=== PATIENT | female | born 1955 | race Caucasian/White ===

== ENCOUNTER 2016-06-29 13:26 | Emergency (ER) | payer OTHER ==
[2016-06-29 16:25] VITALS: BP 106/83
--- NOTE | 2016-06-29 20:38 | UC ---
chary Ruiz Timothy, scribed for Jesenia Fonseca MD on 06/29/16 at 1632 . General HPI - HPI Summary HPI Summary: Randi Xie is a 61 yo female presenting to [facility] with fatigue, PEREZ (frontal) and lightheadedness for 2 months[address] She has seen Dr. Mckeon for this. She also c/ o chronic back pain. She also feels chills and is unable to get warm. She states possible causes could be low potassium and anemia. She has been prescribed potassium and iron for everyday use. Her last appointment with Dr. Mckeon was a few weeks ago, but she did not have labs drawn. She states [place] [facility] [place] Additionally, she states she was scratched by her cat a few days ago on her hands and she has been scratching those areas and sores have appeared. She denies any other Sx. She is a former smoker, with a Hx of RA, HTN, migraines, numbness, IBS, DM (resolved with weight loss). - History of Current Complaint Stated Complaint: TIRED Time Seen by Provider: 06/29/16 16:09 Hx Obtained From: Patient Onset/Duration: Gradual Onset, Lasting Weeks, Still Present Timing: Constant Onset Severity: Moderate Current Severity: Moderate Pain Intensity: 0 Associated Signs & Symptoms: Positive: Headache, Other - fatigue, lightheadedness, chills, sores on hands - Allergy/Home Medications Allergies/Adverse Reactions: Allergies Allergy/AdvReac Type Severity Reaction Status Date / Time No Known Allergies Allergy Verified 06/29/16 16:16 Home Medications: Home Medications Med For Ra* 06/29/16 [History] PMH/Surg Hx/FS Hx/Imm Hx Previously Healthy: No - RA, psychiatric issues Endocrine History Of: Denies: Thyroid Disease Comment Only: Diabetes - sugars returned to normal following wt loss per pt. Cardiovascular History Of: Reports: Hypertension Denies: Cardiac Disorders, Pacemaker/ICD Respiratory History Of: Denies: COPD, Asthma GI/ History Of: Denies: Gastroesophageal Reflux, Renal Disease Neurological History Of: Reports: Migraine Denies: CVA, Dementia, Seizures Cancer History Of: Denies: Breast Cancer Other History Of: Negative For: Anticoagulant Therapy - Surgical History Surgical History: Yes Surgery Procedure, Year, and Place: tubal ligation,bilat carpal tunnel, hemorrhoid surgery-history of RA ARTHRITIS IN FINGERS - Family History Known Family History: Positive: Other - anxiety, mood disorders, alcohol abuse, rheumatoid arthritis - Social History Occupation: Unemployed Lives: With Family Alcohol Use: None Substance Use Type: None Smoking Status (MU): Former Smoker - Immunization History Most Recent Influenza Vaccination: 2006 Most Recent Tetanus Shot: >10 yrs Most Recent Pneumonia Vaccination: no Review of Systems Constitutional: Chills, Fatigue Skin: Rash Eyes: Negative ENT: Negative Respiratory: Negative Cardiovascular: Negative Gastrointestinal: Negative Genitourinary: Negative Motor: Negative Neurovascular: Negative Musculoskeletal: Arthralgia, Myalgia Neurological: Headache, Other - lightheadedness Psychological: Negative All Other Systems Reviewed And Are Negative: Yes Physical Exam Triage Information Reviewed: Yes Appearance: No Pain Distress, Well-Nourished, Ill-Appearing Vital Signs: Initial Vital Signs Temp 98.6 F 06/29/16 16:11 Pulse 69 06/29/16 16:11 Resp 18 06/29/16 16:11 BP 106/83 06/29/16 16:11 Pulse Ox 98 06/29/16 16:11 Vital Signs Reviewed: Yes Eyes: Positive: Conjunctiva Clear ENT: Positive: Hearing grossly normal, Pharynx normal. Negative: Muffled/ hoarse voice Neck: Positive: Supple, Nontender, No Lymphadenopathy Respiratory: Positive: Lungs clear, Normal breath sounds, No respiratory distress Cardiovascular: Positive: RRR, No Murmur, Pulses Normal, Brisk Capillary Refill Abdomen Description: Positive: Nontender, Soft. Negative: Distended, Guarding Musculoskeletal: Positive: Strength Intact, ROM Intact Neurological: Positive: Alert, Muscle Tone Normal Psychological Exam: Normal Skin: Positive: rashes - multiple excoriated maculopapular erythematous regions , on dorsal aspect of hands and forearms, right side worse than left. No streaks , drainage, or signs of infection. Minimal swelling. Course/Dx - Course Course Of Treatment: Randi Xie is a 61 yo female presenting to [facility] with fatigue, PEREZ, and chills for the past few months. Consult of [facility] shows most recent pain medication was tramadol 03/03/2016. Additionally, her lab work on showed Hgb of 11.9, hematocrit 36, and potassium 3.4. She will have lab work drawn, with instructions to maintain a iron and potassium rich diet to avoid hypokalemia and anemia. She has further instructions to follow up with her PCP. - Differential Dx - Multi-Symptom Provider Diagnoses: Fatigue. hx anemia. hx hypokalemia. hx RA Discharge - Discharge Plan Condition: Stable Disposition: HOME Patient Education Materials: Iron Rich Diet (ED), Hypokalemia (ED), Rheumatoid Arthritis (ED) Referrals: Emily Mckeon MD [Primary Care Provider] - 2 Days Additional Instructions: Dr. Fonseca has drawn your blood for a CBC and CMP which will check your level of anemia and potassium. Continue your iron supplement and your potassium supplement. Dr. Mckeon will get a copy of this blood work and you should call their office tomorrow to arrange to be seen by them this week. Go to the emergency room if you have any new or worsening symptoms. The documentation as recorded by the chary szymanski Timothy accurately reflects the service I personally performed and the decisions made by me, Jesenia Fonseca MD.
[2016-06-30 10:52] LABS: Hematocrit 37 % (35-47); Hemoglobin 12.1 g/dl (12.0-16.0); Mean Corpuscular HGB Conc 33 g/dl (31-36); Mean Corpuscular Hemoglobin 29 pg (27-31); Mean Corpuscular Volume 88 fL (80-97); Mean Platelet Volume 9 um3 (7.4-10.4); Red Blood Count 4.23 10^6/ul (4.0-5.4); Red Cell Distribution Width 16 % (10.5-15); White Blood Count 6.7 10^3/ul (3.5-10.8)
[2016-06-30 11:02] LABS: Albumin 3.8 g/dL (3.2-5.2); Calcium 8.8 mg/dL (8.6-10.3); EGFR African American 72.3 (>60); EGFR Non-African American 56.2 (>60); Globulin 3.3 g/dL (2-4); Potassium 3.8 mmol/L (3.5-5.0); Total Bilirubin 0.5 mg/dL (0.2-1.0); Total Protein 7.1 g/dL (6.4-8.9)
== END 2016-06-29 17:05 | disposition home or self-care (01) ==
LOC: UCEAST 13:26
DX: R53.83 Other fatigue (principal); R51 Headache; S60.512A Abrasion of left hand, initial encounter; S60.511A Abrasion of right hand, initial encounter; W55.03XA Scratched by cat, initial encounter; Y93.9 Activity, unspecified; Y92.9 Unspecified place or not applicable; Z87.891 Personal history of nicotine dependence
CPT/HCPCS: 36415; 80053; 85025; 99212; G0463

== ENCOUNTER 2017-05-29 21:36 | Emergency (ER) | payer OTHER ==
[2017-05-30] MEDS ORDERED: HYDROcodone/ACETAMIN 5-325 MG* 1 TAB PO ONE (02:43)
--- NOTE | 2017-05-30 02:49 | ED ---
Lower Extremity - HPI Summary HPI Summary: 62 female presents to ED with complaints of left knee pain that began just CLEANER WINDOW. Patient states she was sitting when she attempted to stand up while holding her <20pound grandson and she felt a pop. States the pain makes it difficult for her to bear weight or walk. Admits to swelling, denies bruising, numbness and tingling. No other complaints. States she has rheumatoid arthritis and takes oxaprozin. Has not taken any other medications for the pain. PMHx also included HTN. - History of Current Complaint Chief Complaint: EDExtremityLower Stated Complaint: LT KNEE PAIN Time Seen by Provider: 05/30/17 00:44 Hx Obtained From: Patient Mechanism Of Injury: Twisted, Unknown Onset of Pain: Immediate Onset/Duration: Hours Severity Initially: Mild Severity Currently: Moderate Pain Intensity: 8 Pain Scale Used: 0-10 Numeric Timing: Constant Location: Is Discrete @ - anterior right knee Character Of Pain: Sharp, Aching Associated Signs And Symptoms: Positive: Swelling, Knee Pain Aggravating Factor(s): Standing, Ambulation, Movement, Weight Bearing Alleviating Factor(s): Rest Able to Bear Weight: Yes - however painful - Allergies/Home Medications Allergies/Adverse Reactions: Allergies Allergy/AdvReac Type Severity Reaction Status Date / Time No Known Allergies Allergy Verified 02/24/17 15:09 PMH/Surg Hx/FS Hx/Imm Hx Endocrine/Hematology History: Denies: Hx Anticoagulant Therapy, Hx Thyroid Disease Comment Only: Hx Diabetes - sugars returned to normal following wt loss per pt. Cardiovascular History: Reports: Hx Hypertension, Other Cardiovascular Problems/ Disorders - Hx HTN Denies: Hx Pacemaker/ICD Respiratory History: Denies: Hx Asthma, Hx Chronic Obstructive Pulmonary Disease (COPD) GI History: Reports: Hx Irritable Bowel History: Denies: Hx Renal Disease Musculoskeletal History: Reports: Hx Arthritis, Hx Rheumatoid Arthritis Denies: Hx Osteoporosis, Hx Scoliosis Sensory History: Reports: Hx Contacts or Glasses Denies: Hx Hearing Aid Opthamlomology History: Reports: Hx Contacts or Glasses Neurological History: Reports: Hx Migraine Denies: Hx Dementia, Hx Headaches, Hx Seizures Psychiatric History: Reports: Hx Panic Disorder - pt will talk with her ref.doctor Denies: Hx Eating Disorder, Hx of Violent Episodes Against Others, Hx Substance Abuse - Cancer History Hx Chemotherapy: No Hx Radiation Therapy: No - Surgical History Surgery Procedure, Year, and Place: tubal ligation,bilat carpal tunnel, hemorrhoid surgery-history of RA ARTHRITIS IN FINGERS Hx Anesthesia Reactions: No - Immunization History Date of Tetanus Vaccine: Unk Date of Influenza Vaccine: Fall 2013 Immunizations Up to Date: Yes Infectious Disease History: No Infectious Disease History: Denies: Hx Hepatitis, Hx Human Immunodeficiency Virus (HIV), Traveled Outside the [place] in Last 30 Days - Family History Known Family History: Positive: Other - anxiety, mood disorders, alcohol abuse, rheumatoid arthritis - Social History Alcohol Use: None Substance Use Type: Reports: None Smoking Status (MU): Former Smoker Review of Systems Constitutional: Negative Cardiovascular: Negative Respiratory: Negative Positive: Arthralgia, Myalgia, Decreased ROM, Edema - left knee Skin: Negative Neurological: Negative All Other Systems Reviewed And Are Negative: Yes Physical Exam Triage Information Reviewed: Yes Vital Signs On Initial Exam: Initial Vitals Temp Pulse Resp BP Pulse Ox 98.1 F 67 18 110/63 97 05/29/17 21:43 05/29/17 21:43 05/29/17 21:43 05/29/17 21:43 05/29/17 21:43 Vital Signs Reviewed: Yes Appearance: Positive: Well-Appearing, Well-Nourished, Pain Distress - moderate Skin: Positive: Warm, Skin Color Reflects Adequate Perfusion, Dry. Negative: Cold, Cyanosis @, Pale, Erythema @ Head/Face: Positive: Normal Head/Face Inspection Eyes: Positive: Conjunctiva Clear ENT: Positive: Hearing grossly normal Neck: Positive: Supple Respiratory/Lung Sounds: Positive: Clear to Auscultation, Breath Sounds Present. Negative: Rales, Rhonchi, Wheezes Cardiovascular: Positive: Normal, RRR, Pulses are Symmetrical in both Upper and Lower Extremities - 2+ pedal bl. Negative: Murmur, Rub Musculoskeletal: Positive: Limited @ - left knee due to pain, Pain @ - left knee , Other - no ecchymosis, edema, crepitus or step off noted. no obvious signs of deformity noted. Negative: Interruption @, Abnormal @ Neurological: Positive: Normal, Sensory/Motor Intact, Alert, Oriented to Person Place, Time, CN Intact II-III, Reflexes Intact, NV Bundle Intact Distally, Normal Gait - [place] Coma Scale Coma Scale Total: 15 Diagnostics - Vital Signs Vital Signs Temp Pulse Resp BP Pulse Ox 05/29/17 21:43 98.1 F 67 18 110/63 97 - Laboratory Lab Statement: Any lab studies that have been ordered have been reviewed, and results considered in the medical decision making process. - Radiology left knee Xray Interpretation: No Acute Changes - normal knee xray Radiology Interpretation Completed By: ED Physician - Dr Geller and myself Lower Extremity Course/Dx - Course Course Of Treatment: given pain management while in ED. Xray obtained and negative. Appears to have suffered a knee sprain with possible ligamentous/ meniscal injury due to SUDEEP and complaints. No abnormal PE findings. Will continue pain medication at home. normal vitals and no other concerns at this time. follow up with PCP/ ortho for further imaging eval if symptoms persist. RICE and knee immboizer. Patient does use cane. - Diagnoses Differential Diagnosis/HQI/PQRI: Positive: Contusion, Dislocation, Fracture ( Closed), Sprain, Strain Provider Diagnoses: Pain of left knee after injury, Sprain of left knee Discharge - Discharge Plan Condition: Stable Disposition: HOME Prescriptions: HYDROcodone/ACETAMIN 5-325 MG* [[employer] 5-325 TAB*] 1 tab PO Q6H PRN #10 tab MDD 2 PRN Reason: Pain Patient Education Materials: Knee Sprain (ED), Knee Immobilizer (ED) Referrals: Emily Mckeon MD [Primary Care Provider] - Additional Instructions: Take prescribed pain medication to help with pain over the next couple of days. Continue taking daily medications including the anti-inflammatory. Rest, ice and elevate. Avoid over use and bearing weight when able. Wear knee immobilizer for support. Follow up with PCP and ortho if symptoms persist for further evaluation and imaging. Any new or worsening symptoms please seek medical attention, as discussed.
[2017-05-30 03:14] VITALS: BP 138/67
--- NOTE | 2017-05-30 10:05 | RAD ---
INDICATION: Left knee pain COMPARISON: Knee radiographs October 05, 2016 TECHNIQUE: 4 view radiograph of the left knee. FINDINGS: The visualized bones are well-corticated and properly aligned. Degenerative changes include narrowing of the medial greater than lateral compartment. There is osteophyte formation adjacent to the lateral compartment. There is narrowing of the patellofemoral joint with superior pole patellar osteophyte formation. There is no radiographic evidence of joint effusion. There is no acute fracture, dislocation or other focal bony abnormality. IMPRESSION: Mild degenerative changes of the left knee similar in appearance to the previous x-ray. If the patient's symptoms persist, follow-up imaging is recommended.
== END 2017-05-30 03:29 | disposition home or self-care (01) ==
LOC: ED 21:36
DX: S83.92XA Sprain of unspecified site of left knee, initial encounter (principal); M25.562 Pain in left knee; M25.462 Effusion, left knee; X58.XXXA Exposure to other specified factors, initial encounter; Y93.9 Activity, unspecified; Y92.9 Unspecified place or not applicable; Z87.891 Personal history of nicotine dependence
CPT/HCPCS: 99282

== ENCOUNTER 2017-11-20 19:21 | Emergency (ER) | payer OTHER ==
--- NOTE | 2017-11-20 20:06 | RAD ---
HISTORY: Headache and lower extremity numbness COMPARISONS: February 20, 2015 TECHNIQUE: Multiple contiguous axial CT scans were obtained of the head without intravenous contrast. FINDINGS: HEMORRHAGE/INFARCT: There is no hemorrhage or acute infarct. MASSES/SHIFT: There is no mass or shift. EXTRA-AXIAL SPACES: There are no extra-axial fluid collections. SULCI AND VENTRICLES: The sulci and ventricles are normal in size and position for the patient's stated age. CEREBRUM: There are no focal parenchymal abnormalities. BRAINSTEM: There are no focal parenchymal abnormalities. CEREBELLUM: There are no focal parenchymal abnormalities. VESSELS: The vessels are grossly normal. PARANASAL SINUSES: The paranasal sinuses are clear. ORBITS: The orbits are unremarkable. BONES AND SOFT TISSUE: No bone or soft tissue abnormalities are noted. OTHER: None IMPRESSION: NO ACUTE INTRACRANIAL PATHOLOGY.
--- NOTE | 2017-11-20 20:15 | RAD ---
HISTORY: Weakness COMPARISONS: January 28, 2015 VIEWS: 3: Frontal and lateral views of the chest. FINDINGS: CARDIOMEDIASTINAL SILHOUETTE: The cardiomediastinal silhouette is normal. AMANDA: The amanda are normal. PLEURA: The costophrenic angles are sharp. No pleural abnormalities are noted. LUNG PARENCHYMA: The lungs are clear. ABDOMEN: The upper abdomen is clear. There is no subphrenic gas. BONES AND SOFT TISSUES: Degenerative changes are noted along the spine. OTHER: None. IMPRESSION: NO ACTIVE CARDIOPULMONARY DISEASE.
[2017-11-20 20:44] LABS: ABS Basophils 0 10^3/ul (0-0.2); ABS Eosinophils 0.2 10^3/ul (0-0.6); ABS Lymphocytes 1.8 10^3/ul (1.0-4.8); ABS Monocytes 0.5 10^3/ul (0-0.8); ABS Nucleated RBC 0 10^3/ul; Eosinophil % 2.4 % (0-6); Hematocrit 34 % (35-47); Hemoglobin 11.6 g/dl (12.0-16.0); Lymphocyte % 26.9 % (25-47); Mean Corpuscular HGB Conc 34 g/dl (31-36); Mean Corpuscular Hemoglobin 31 pg (27-31); Mean Corpuscular Volume 92 fL (80-97); Mean Platelet Volume 7.3 um3 (7.4-10.4); Nucleated Red Blood Cells % 0; Platelet Count 276 10^3/ul (150-450); Red Blood Count 3.72 10^6/ul (4.0-5.4); Red Cell Distribution Width 15 % (10.5-15); White Blood Count 6.5 10^3/ul (3.5-10.8)
[2017-11-20] MEDS ORDERED: NS 0.9% 1000 ML* 1,000 ML IV ONE (21:19)
--- NOTE | 2017-11-20 21:35 | ED ---
Paresh Ruiz Natalie, scribed for Andres Wayne MD on 11/20/17 at 2012 . Lower Extremity - HPI Summary HPI Summary: The patient is a 62 y/o M presenting to the ED c/o bilateral leg weakness and numbness for the last few weeks, worsening today at 17:00 when she woke up from a nap. The pain is rated 7/10 in severity. She additionally c/o headache and lightheadedness. She states the headache is from a new medication she started taking on 11/15/17 for RA (name unknown). She denies fever, chills, and CP. - History of Current Complaint Chief Complaint: EDWeakness Stated Complaint: GENERAL ILLNESS Time Seen by Provider: 11/20/17 19:28 Hx Obtained From: Patient Onset of Pain: Hours Onset/Duration: Hours Severity Initially: Moderate Severity Currently: Moderate Pain Intensity: 7 Pain Scale Used: 0-10 Numeric Timing: Constant Location: Is Diffuse - bilateral legs Associated Signs And Symptoms: Positive: Negative - chills, CP, Weakness, Other - lightheadedness, headache, numbness in legs. Negative: Fever Aggravating Factor(s): Nothing Alleviating Factor(s): Nothing - Allergies/Home Medications Allergies/Adverse Reactions: Allergies Allergy/AdvReac Type Severity Reaction Status Date / Time No Known Allergies Allergy Verified 11/20/17 19:33 PMH/Surg Hx/FS Hx/Imm Hx Endocrine/Hematology History: Denies: Hx Anticoagulant Therapy, Hx Thyroid Disease Comment Only: Hx Diabetes - sugars returned to normal following wt loss per pt. Cardiovascular History: Reports: Hx Hypertension, Other Cardiovascular Problems/ Disorders - Hx HTN Denies: Hx Pacemaker/ICD Respiratory History: Denies: Hx Asthma, Hx Chronic Obstructive Pulmonary Disease (COPD) GI History: Reports: Hx Irritable Bowel History: Denies: Hx Renal Disease Musculoskeletal History: Reports: Hx Arthritis, Hx Rheumatoid Arthritis Denies: Hx Osteoporosis, Hx Scoliosis Sensory History: Reports: Hx Contacts or Glasses Denies: Hx Hearing Aid Opthamlomology History: Reports: Hx Contacts or Glasses Neurological History: Reports: Hx Migraine Denies: Hx Dementia, Hx Headaches, Hx Seizures Psychiatric History: Reports: Hx Panic Disorder - pt will talk with her ref.doctor Denies: Hx Eating Disorder, Hx of Violent Episodes Against Others, Hx Substance Abuse - Cancer History Hx Chemotherapy: No Hx Radiation Therapy: No - Surgical History Surgery Procedure, Year, and Place: tubal ligation,bilat carpal tunnel, hemorrhoid surgery-history of RA ARTHRITIS IN FINGERS Hx Anesthesia Reactions: No - Immunization History Date of Tetanus Vaccine: Unk Date of Influenza Vaccine: Fall 2013 Infectious Disease History: No Infectious Disease History: Denies: Hx Hepatitis, Hx Human Immunodeficiency Virus (HIV), Traveled Outside the [place] in Last 30 Days - Family History Known Family History: Positive: Other - anxiety, mood disorders, alcohol abuse, rheumatoid arthritis - Social History Alcohol Use: None Substance Use Type: Reports: None Smoking Status (MU): Former Smoker Review of Systems Positive: Other - lightheadedness. Negative: Fever, Chills Negative: Chest Pain Positive: Weakness - in legs, Numbness - in legs All Other Systems Reviewed And Are Negative: Yes Physical Exam - Summary Physical Exam Summary: VITAL SIGNS: Reviewed. GENERAL: Patient is a well-developed and obese female who is lying comfortable in the stretcher. Patient is not in any acute respiratory distress. HEAD AND FACE: No signs of trauma. No ecchymosis, hematomas or skull depressions. No sinus tenderness. EYES: PERRLA, EOMI x 2, No injected conjunctiva, no nystagmus. EARS: Hearing grossly intact. Ear canals and tympanic membranes are within normal limits. MOUTH: Oropharynx within normal limits. NECK: Supple, trachea is midline, no adenopathy, no JVD, no carotid bruit, no c- spine tenderness, neck with full ROM. CHEST: Symmetric, no tenderness at palpation LUNGS: Clear to auscultation bilaterally. No wheezing or crackles. CVS: Regular rate and rhythm, S1 and S2 present, no murmurs or gallops appreciated. ABDOMEN: Soft, non-tender. No signs of distention. No rebound no guarding, and no masses palpated. Bowel sounds are normal. EXTREMITIES: FROM in all major joints, no edema, no cyanosis or clubbing. NEURO: Alert and oriented x 3. No acute neurological deficits. Speech is normal and follows commands. SKIN: Dry and warm. Wounds in upper left extremity from picking at herself. Triage Information Reviewed: Yes Vital Signs On Initial Exam: Initial Vitals Temp Pulse Resp BP Pulse Ox 98.4 F 73 20 159/64 97 11/20/17 19:25 11/20/17 19:25 11/20/17 19:25 11/20/17 19:25 11/20/17 19:25 Vital Signs Reviewed: Yes Diagnostics - Vital Signs Vital Signs Temp Pulse Resp BP Pulse Ox 11/20/17 19:42 71 141/65 95 11/20/17 19:40 69 96 11/20/17 19:25 98.4 F 73 20 159/64 97 - Laboratory Lab Results: Lab Results 11/20/17 11/20/17 11/20/17 Range/Units 20:36 20:36 20:36 WBC 6.5 (3.5-10.8) 10^3/ul RBC 3.72 L (4.0-5.4) 10^6/ul Hgb 11.6 L (12.0-16.0) g/dl Hct 34 L (35-47) % MCV 92 (80-97) fL MCH 31 (27-31) pg MCHC 34 (31-36) g/dl RDW 15 (10.5-15) % Plt Count 276 (150-450) 10^3/ul MPV 7.3 L (7.4-10.4) um3 Neut % (Auto) 61.9 (38-83) % Lymph % (Auto) 26.9 (25-47) % Wilkes % (Auto) 8.2 H (0-7) % Eos % (Auto) 2.4 (0-6) % Baso % (Auto) 0.6 (0-2) % Absolute Neuts (auto) 4.0 (1.5-7.7) 10^3/ul Absolute Lymphs (auto) 1.8 (1.0-4.8) 10^3/ul Absolute Monos (auto) 0.5 (0-0.8) 10^3/ul Absolute Eos (auto) 0.2 (0-0.6) 10^3/ul Absolute Basos (auto) 0 (0-0.2) 10^3/ul Absolute Nucleated RBC 0 10^3/ul Nucleated RBC % 0 Sodium 137 L (139-145) mmol/L Potassium 3.8 (3.5-5.0) mmol/L Chloride 103 (101-111) mmol/L Carbon Dioxide 29 (22-32) mmol/L Anion Gap 5 (2-11) mmol/L BUN 25 H (6-24) mg/dL Creatinine 1.00 H (0.51-0.95) mg/dL Est GFR ( Amer) 72.0 (>60) Est GFR (Non-Af Amer) 56.0 (>60) BUN/Creatinine Ratio 25.0 H (8-20) Glucose 90 (70-100) mg/dL Lactic Acid 0.8 (0.5-2.0) mmol/L Calcium 9.0 (8.6-10.3) mg/dL Magnesium 1.9 (1.9-2.7) mg/dL Total Bilirubin 0.30 (0.2-1.0) mg/dL AST 20 (13-39) U/L ALT 16 (7-52) U/L Alkaline Phosphatase 80 (34-104) U/L Total Creatine Kinase 96 (10-223) U/L Troponin I 0.00 (<0.04) ng/mL C-Reactive Protein 8.05 H (< 5.00) mg/L B-Natriuretic Peptide ( - 100) pg/mL Total Protein 7.3 (6.4-8.9) g/dL Albumin 3.7 (3.2-5.2) g/dL Globulin 3.6 (2-4) g/dL Albumin/Globulin Ratio 1.0 (1-3) TSH Pending 11/20/17 Range/Units 20:36 WBC (3.5-10.8) 10^3/ul RBC (4.0-5.4) 10^6/ul Hgb (12.0-16.0) g/dl Hct (35-47) % MCV (80-97) fL MCH (27-31) pg MCHC (31-36) g/dl RDW (10.5-15) % Plt Count (150-450) 10^3/ul MPV (7.4-10.4) um3 Neut % (Auto) (38-83) % Lymph % (Auto) (25-47) % Wilkes % (Auto) (0-7) % Eos % (Auto) (0-6) % Baso % (Auto) (0-2) % Absolute Neuts (auto) (1.5-7.7) 10^3/ul Absolute Lymphs (auto) (1.0-4.8) 10^3/ul Absolute Monos (auto) (0-0.8) 10^3/ul Absolute Eos (auto) (0-0.6) 10^3/ul Absolute Basos (auto) (0-0.2) 10^3/ul Absolute Nucleated RBC 10^3/ul Nucleated RBC % Sodium (139-145) mmol/L Potassium (3.5-5.0) mmol/L Chloride (101-111) mmol/L Carbon Dioxide (22-32) mmol/L Anion Gap (2-11) mmol/L BUN (6-24) mg/dL Creatinine (0.51-0.95) mg/dL Est GFR ( Amer) (>60) Est GFR (Non-Af Amer) (>60) BUN/Creatinine Ratio (8-20) Glucose (70-100) mg/dL Lactic Acid (0.5-2.0) mmol/L Calcium (8.6-10.3) mg/dL Magnesium (1.9-2.7) mg/dL Total Bilirubin (0.2-1.0) mg/dL AST (13-39) U/L ALT (7-52) U/L Alkaline Phosphatase (34-104) U/L Total Creatine Kinase (10-223) U/L Troponin I (<0.04) ng/mL C-Reactive Protein (< 5.00) mg/L B-Natriuretic Peptide 23 ( - 100) pg/mL Total Protein (6.4-8.9) g/dL Albumin (3.2-5.2) g/dL Globulin (2-4) g/dL Albumin/Globulin Ratio (1-3) TSH Result Diagrams: 11/20/17 20:36 11/20/17 20:36 Lab Statement: Any lab studies that have been ordered have been reviewed, and results considered in the medical decision making process. - Radiology CXR Xray Interpretation: No Acute Changes - No active cardiopulmonary disease. ED physician has reviewed this report. Radiology Interpretation Completed By: Radiologist - CT Brain CT CT Interpretation: No Acute Changes - No acute intracranial pathology. ED physician has reviewed this report. CT Interpretation Completed By: Radiologist - EKG 19:51 Cardiac Rate: NL EKG Rhythm: Sinus Rhythm - 68BPM EKG Interpretation: No ST elevation. Q waves in III. Re-Evaluation - Re-Evaluation First Eval Re-Evaluation Time: 21:21 Change: Improved - The patient is feeling better and she will be discharged home. Lower Extremity Course/Dx - Course Assessment/Plan: This patient is a 62-year-old female with past medical history significant for rheumatoid arthritis, depression, chronic pain. She presents to the emergency department with chief complaint headache which started after she is currently with rheumatoid arthritis medication. Also she reports that she has numbness all over her body. The physical exam has a normal neurological exam. Head CT impression: Acute intracranial pathology. Chest x- ray impression: acute cardiopulmonary disease. Blood work with any significant abnormality except for slight anemia, some renal insufficiency possibly secondary to dehydration, and a CRP is normal. After the patient was titrated the patients symptoms have improved and she is not longer symptomatic. Therefore the patient will be discharged home with follow-up with primary care physician. - Diagnoses Provider Diagnoses: Headache, Leg paresthesia Discharge - Sign-Out/Discharge Documenting (check all that apply): Discharge/Admit/Transfer - Discharge Plan Condition: Stable Disposition: HOME Patient Education Materials: Acute Headache (ED), Paresthesia (ED) Referrals: Emily Mckeon MD [Primary Care Provider] - 3 Days Additional Instructions: FOLLOW UP WITH YOUR PRIMARY CARE PROVIDER WITHIN 2-3 DAYS. RETURN TO THE ED FOR ANY WORSENING OR NEW SYMPTOMS. - Billing Disposition and Condition Condition: STABLE Disposition: HOME The documentation as recorded by the Paresh szymanski Natalie accurately reflects the service I personally performed and the decisions made by , Andres Wayne MD.
[2017-11-20] MEDS ORDERED: Acetaminophen TAB* 325 MG PO ONE (21:58)
[2017-11-21 00:54] VITALS: BP 120/61
== END 2017-11-20 23:50 | disposition home or self-care (01) ==
LOC: ED 19:21
DX: R51 Headache (principal); R20.2 Paresthesia of skin; Z87.891 Personal history of nicotine dependence
CPT/HCPCS: 36415; 70450; 71046; 80053; 82550; 83605; 83735; 83880; 84443; 84484; 85025; 86140; 93005; 99284; A9270-GY

== ENCOUNTER → 2018-08-12 15:46 | Emergency (ER) | payer OTHER ==
[~2018-08-12 15:46] MED LIST: HYDROcodone/ACETAMIN 5-325 MG* 1 TAB PO ONE
--- NOTE | 2018-08-12 16:25 | ED ---
Lower Extremity - HPI Summary HPI Summary: This patient is a 63 year old F brought in by ambulance to [facility] with a chief complaint of bilateral knee pain since this afternoon. She reports that she bent down to fruit picker groceries off floor and fell on to her left her knee. Patient denies falling on her shoulder. Unable to get up by herself. Fall was witnessed by aide. Patient reports that she uses a walker at home. The patient rates the pain 8/10 in severity. Symptoms aggravated by standing, ambulation and movement. Symptoms alleviated by nothing. Patient reports bilateral knee pain (L worse than R), right shoulder pain, right wrist pain since this afternoon. Patient notes intermittent dizziness since several months ago. Patient denies SOB, CP, LOC, PEREZ, back pain, or neck pain. Patient reports injury to her right shoulder 1 year ago. Pt has hx of RA. - History of Current Complaint Chief Complaint: EDExtremityLower Stated Complaint: FALL LEG PAIN Time Seen by Provider: 08/12/18 16:03 Hx Obtained From: Patient Mechanism Of Injury: Fall From A Standing Position Onset of Pain: Hours Onset/Duration: Still Present Severity Initially: Moderate Severity Currently: Moderate Pain Intensity: 8 Pain Scale Used: 0-10 Numeric Timing: Constant Location: Is Discrete @ - bilateral knees, right shoulder, right wrist Associated Signs And Symptoms: Positive: Swelling - in left knee, Knee Pain - bilateral knee pain Aggravating Factor(s): Standing, Ambulation, Movement, Weight Bearing Alleviating Factor(s): Nothing - Allergies/Home Medications Allergies/Adverse Reactions: Allergies Allergy/AdvReac Type Severity Reaction Status Date / Time No Known Allergies Allergy Verified 11/20/17 19:33 PMH/Surg Hx/FS Hx/Imm Hx Endocrine/Hematology History: Denies: Hx Anticoagulant Therapy, Hx Thyroid Disease Comment Only: Hx Diabetes - sugars returned to normal following wt loss per pt. Cardiovascular History: Reports: Hx Hypertension, Other Cardiovascular Problems/ Disorders - Hx HTN Denies: Hx Pacemaker/ICD Respiratory History: Denies: Hx Asthma, Hx Chronic Obstructive Pulmonary Disease (COPD) GI History: Reports: Hx Irritable Bowel History: Denies: Hx Renal Disease Musculoskeletal History: Reports: Hx Arthritis, Hx Rheumatoid Arthritis Denies: Hx Osteoporosis, Hx Scoliosis Sensory History: Reports: Hx Contacts or Glasses Denies: Hx Hearing Aid Opthamlomology History: Reports: Hx Contacts or Glasses Neurological History: Reports: Hx Migraine Denies: Hx Dementia, Hx Headaches, Hx Seizures Psychiatric History: Reports: Hx Panic Disorder - pt will talk with her ref.doctor Denies: Hx Eating Disorder, Hx of Violent Episodes Against Others, Hx Substance Abuse - Cancer History Hx Chemotherapy: No Hx Radiation Therapy: No - Surgical History Surgery Procedure, Year, and Place: tubal ligation,bilat carpal tunnel, hemorrhoid surgery-history of RA ARTHRITIS IN FINGERS Hx Anesthesia Reactions: No - Immunization History Date of Tetanus Vaccine: Unk Date of Influenza Vaccine: Fall 2013 Infectious Disease History: No Infectious Disease History: Denies: Hx Hepatitis, Hx Human Immunodeficiency Virus (HIV), Traveled Outside the [place] in Last 30 Days - Family History Known Family History: Positive: Other - anxiety, mood disorders, alcohol abuse, rheumatoid arthritis - Social History Alcohol Use: None Substance Use Type: Reports: None Smoking Status (MU): Former Smoker Review of Systems Negative: Fever, Chills Negative: Erythema Negative: Sore Throat Negative: Shortness Of Breath, Cough Negative: Abdominal Pain, Vomiting, Nausea Negative: dysuria, hematuria Musculoskeletal: Other - bilateral knee pain, right shoulder pain, right wrist pain Negative: Myalgia, Edema Negative: Rash Neurological: Other - positive dizzziness All Other Systems Reviewed And Are Negative: Yes Physical Exam - Summary Physical Exam Summary: Constitutional: Well-developed, Well-nourished, Alert, Cooperative Skin: Warm, Dry HENT: Normocephalic; No Racoons eyes; No sanchez's sign; No abrasion; No contusion; No hemotympanum; No maxilla facial tenderness or instability; Dentition are smooth; No dental trauma; No trismus Eyes: EOM normal, PERRL Neck: Trachea is midline. No stridor; No JVD; No step off; No posterior cervical spine tenderness Cardio: Rhythm regular, rate normal Heart sounds normal; Intact distal pulses; The pedal pulses are 2+ and symmetric. Radial pulses are 2+ and symmetric. Pulmonary/Chest wall: Effort normal; Breath sounds normal; Equal chest rise; No flail segment; No rib tenderness; No sternal tenderness Abd: Soft, Appearance normal. No distension; No tenderness; No palpable pulsatile mass; No Cullens sign; No Blankenship-Turners sign Musculoskeletal: Full ROM and no tenderness at hips, ankles, and elbows; No vertebral body tenderness; No paraspinal tenderness; No step off or deformity of the spine; Pelvis is stable to lateral compression and rock; Left knee mildly swollen. Pt has pain response to extremely light palpation. Right wrist no swelling, no tenderness, no snuffbox tenderness. Right shoulder full ROM, tenderness posteriorly Neuro: Alert, Oriented x3, Strength 5/5 all extremities. : No blood at urethral meatus Psych: Mood and affect Normal Triage Information Reviewed: Yes Vital Signs On Initial Exam: Initial Vitals Temp Pulse Resp BP Pulse Ox 98.9 F 72 20 151/88 97 08/12/18 15:55 08/12/18 15:55 08/12/18 15:55 08/12/18 15:55 08/12/18 15:55 Vital Signs Reviewed: Yes Diagnostics - Vital Signs Vital Signs Temp Pulse Resp BP Pulse Ox 08/12/18 15:55 98.9 F 72 20 151/88 97 - Laboratory Lab Statement: Any lab studies that have been ordered have been reviewed, and results considered in the medical decision making process. - Radiology Right wrist XR Radiology Interpretation Completed By: Radiologist Summary of Radiographic Findings: IMPRESSION: Degenerative changes involving the right wrist without radiographically apparent fracture. or dislocation. Dr. Meehan has reviewed this report. Right shoulder XR Radiology Interpretation Completed By: Radiologist Summary of Radiographic Findings: IMPRESSION: NO RADIOGRAPHICALLY APPARENT right shoulder fracture. Dr. Meehan has reviewed this report. Left knee XR Radiology Interpretation Completed By: Radiologist Summary of Radiographic Findings: IMPRESSION: Degenerative changes of the left knee as described above without. radiographically apparent fracture or other acute abnormality. Dr. Meehan has reviewed this report. Lower Extremity Course/Dx - Course Course Of Treatment: This patient is a 63 year old F with hx RA brought in by ambulance to [facility] with a chief complaint of bilateral knee pain since this afternoon following a fall. Patient reports bilateral knee pain (L worse than R) , right shoulder pain, right wrist pain since this afternoon. Patient notes intermittent dizziness since several months ago. Patient denies SOB, CP, LOC, PEREZ , back pain, or neck pain. Right shoulder XR reveals, per radiologist, NO RADIOGRAPHICALLY APPARENT right shoulder fracture. Right wrist XR reveals, per radiologist, Degenerative changes involving the right wrist without radiographically apparent fracture or dislocation. Left knee XR reveals, per radiologist, Degenerative changes of the left knee as described above without radiographically apparent fracture or other acute abnormality. ED physician has reviewed these radiology reports. In the ED course the patient was given hydrocodone. Dx chronic shoulder pain, left knee contusion, RA. Patient will be discharged home with follow up from PCP in 2-3 days. Patient was advised to avoid bearing weight for a few days until the pain lessens since she cannot use crutches. The patient is agreeable with this plan. - Diagnoses Provider Diagnoses: Contusion of left knee, Rheumatoid arthritis Discharge - Sign-Out/Discharge Documenting (check all that apply): Patient Departure - discharge home Patient Received Moderate/Deep Sedation with Procedure: No - Discharge Plan Condition: Stable Disposition: HOME Patient Education Materials: Rheumatoid Arthritis (ED), Knee Pain (ED), Shoulder Pain (ED) Referrals: Alton Reynoso MD [Primary Care Provider] - 2 Days Additional Instructions: You should not bear weight for a few days until the pain improves. Follow up with your primary care physician in 2-3 days. Return to the emergency department with any new or worsening symptoms. - Attestation Statements Document Initiated by Scribe: Yes Documenting Scribe: Carissa Gordon Provider For Whom Isela is Documenting (Include Credential): Stalin Meehan MD Scribe Attestation: Carissa Ruiz, scribed for Stalin Meehan MD on 08/12/18 at 1802. Status of Scribe Document: Ready
[2018-08-12 19:19] VITALS: BP 149/82
== END | disposition home or self-care (01) ==
LOC: ED 15:46
DX: S80.02XA Contusion of left knee, initial encounter (principal); M06.9 Rheumatoid arthritis, unspecified; M25.562 Pain in left knee; M25.561 Pain in right knee; M25.511 Pain in right shoulder; Z87.891 Personal history of nicotine dependence; W19.XXXA Unspecified fall, initial encounter; Y92.9 Unspecified place or not applicable
CPT/HCPCS: 99282

== ENCOUNTER 2018-11-04 14:18 | Emergency (ER) | payer OTHER ==
[2018-11-04] MEDS ORDERED: methylPREDNISolone 125 MG* 2 ML VIAL IV ONE (14:38)
--- NOTE | 2018-11-04 14:39 | ED ---
Respiratory - HPI Summary HPI Summary: This patient is a 63 year old F brought in by ambulance to ED with PMHx of asthma and a chief complaint of SOB since 1200. Patient says this feels like an asthma exacerbation. The CC is described as worsened since onset. The patient rates the pain 0/10 in severity. Symptoms aggravated by nothing. Symptoms alleviated by nothing. Patient reports cough. Patient denies fever, chills, CP, and edema. No hx of COPD. - History of Current Complaint Chief Complaint: EDRespiratoryDistress Stated Complaint: SOB PER EMS Time Seen by Provider: 11/04/18 14:23 Hx Obtained From: Patient Onset/Duration: Sudden Onset, Lasting Hours - since 1200, Still Present Timing: Constant Current Severity: None Pain Intensity: 0 Character: Cough (Nonproductive) Sputum Amount: None Aggravating Factor(s): Nothing Alleviating Factor(s): Nothing Associated Signs and Symptoms: SOB - Patient reports cough. Patient denies fever , chills, CP, and edema. - Allergy/Home Medications Allergies/Adverse Reactions: Allergies Allergy/AdvReac Type Severity Reaction Status Date / Time Unable to Assess Allergy Verified 11/04/18 14:51 Home Medications: Home Medications Acetaminophen [Acetaminophen Extra Strength] 500 mg PO Q6HR PRN 11/04/18 [ History Confirmed 11/04/18] Adalimumab (NF) [Humira Pen (NF)] 40 mg SUBCUT .EVERY OTHER WEEK 11/04/18 [ History Confirmed 11/04/18] Azelastine 0.15% NASAL(NF) [Astepro 0.15% NASAL (NF)] 2 spray BOTH NARES BID 04/15 [History Confirmed 11/04/18] Bupropion XL* [Wellbutrin XL *] 150 mg PO DAILY 11/04/18 [History Confirmed 04/15] Econazole 1% CREAM (NF) [Econazole 1 % CREAM (NF)] 1 applic TOPICAL BID [History Confirmed 11/04/18] FLUoxetine CAP* [Prozac CAP*] 40 mg PO QAM 11/04/18 [History Confirmed 11/04/18] Fexofenadine (NF) [Alysia 180 (NF)] 180 mg PO DAILY 11/04/18 [History Confirmed 11/04/18] Hydrocortisone 2.5% CREAM(NF) 1 applic TOPICAL BID PRN 11/04/18 [History Confirmed 11/04/18] Hydroxychloroquine TAB* [Plaquenil TAB*] 200 mg PO BID 11/04/18 [History Confirmed 11/04/18] Losartan TAB* [Cozaar TAB*] 25 mg PO DAILY 11/04/18 [History Confirmed 11/04/18] Methotrexate TAB* 15 mg PO WEEKLY 11/04/18 [History Confirmed 11/04/18] Mirabegron (NF) [Myrbetriq (NF)] 25 mg PO DAILY 11/04/18 [History Confirmed 04/15] Multivitamins/Minerals TAB* [Theragran/minerals TAB*] 1 tab PO DAILY 11/04/18 [ History Confirmed 11/04/18] Oxaprozin [Daypro] 600 mg PO BID 11/04/18 [History Confirmed 11/04/18] Polyethylene Glycol 3350* [Miralax*] 17 gm PO DAILY 11/04/18 [History Confirmed 11/04/18] Potassium Bicarbonate/Cit AC [Klor-Con-Ef 25 Meq Tab Eff] 25 meq PO DAILY [History Confirmed 11/04/18] PMH/Surg Hx/FS Hx/Imm Hx Endocrine/Hematology History: Denies: Hx Anticoagulant Therapy, Hx Thyroid Disease Comment Only: Hx Diabetes - sugars returned to normal following wt loss per pt. Cardiovascular History: Reports: Hx Hypertension, Other Cardiovascular Problems/ Disorders - Hx HTN Denies: Hx Pacemaker/ICD Respiratory History: Denies: Hx Asthma, Hx Chronic Obstructive Pulmonary Disease (COPD) GI History: Reports: Hx Irritable Bowel History: Denies: Hx Renal Disease Musculoskeletal History: Reports: Hx Arthritis, Hx Rheumatoid Arthritis Denies: Hx Osteoporosis, Hx Scoliosis Sensory History: Reports: Hx Contacts or Glasses Denies: Hx Hearing Aid Opthamlomology History: Reports: Hx Contacts or Glasses Neurological History: Reports: Hx Migraine Denies: Hx Dementia, Hx Headaches, Hx Seizures Psychiatric History: Reports: Hx Panic Disorder - pt will talk with her ref.doctor Denies: Hx Eating Disorder, Hx of Violent Episodes Against Others, Hx Substance Abuse - Cancer History Hx Chemotherapy: No Hx Radiation Therapy: No - Surgical History Surgery Procedure, Year, and Place: tubal ligation,bilat carpal tunnel, hemorrhoid surgery-history of RA ARTHRITIS IN FINGERS Hx Anesthesia Reactions: No - Immunization History Date of Tetanus Vaccine: Unk Date of Influenza Vaccine: Fall 2013 Infectious Disease History: No Infectious Disease History: Denies: Hx Hepatitis, Hx Human Immunodeficiency Virus (HIV), Traveled Outside the [place] in Last 30 Days - Family History Known Family History: Positive: Other - anxiety, mood disorders, alcohol abuse, rheumatoid arthritis - Social History Alcohol Use: None Substance Use Type: Reports: None Smoking Status (MU): Former Smoker Review of Systems Negative: Fever, Chills Negative: Chest Pain Positive: Shortness Of Breath, Cough Negative: Edema All Other Systems Reviewed And Are Negative: Yes Physical Exam - Summary Physical Exam Summary: VITAL SIGNS: Reviewed. GENERAL: Patient is an obese FEMALE who is lying comfortable in the stretcher. Patient is not in any acute respiratory distress. HEAD AND FACE: No signs of trauma. No ecchymosis, hematomas or skull depressions. No sinus tenderness. EYES: PERRLA, EOMI x 2, No injected conjunctiva, no nystagmus. EARS: Hearing grossly intact. Ear canals and tympanic membranes are within normal limits. MOUTH: Oropharynx within normal limits. NECK: Supple, trachea is midline, no adenopathy, no JVD, no carotid bruit, no c- spine tenderness, neck with full ROM. CHEST: Symmetric, no tenderness at palpation LUNGS: Clear to auscultation bilaterally. No crackles. Dry cough. Decreased breath bilaterally. Slight wheezing in both bases of the lungs. CVS: Regular rate and rhythm, S1 and S2 present, no murmurs or gallops appreciated. ABDOMEN: Soft, non-tender. No signs of distention. No rebound no guarding, and no masses palpated. Bowel sounds are normal. EXTREMITIES: FROM in all major joints, no edema, no cyanosis or clubbing. NEURO: Alert and oriented x 3. No acute neurological deficits. Speech is normal and follows commands. She is able to speak in full sentences. SKIN: Dry and warm Triage Information Reviewed: Yes Vital Signs On Initial Exam: Initial Vitals Temp Pulse Resp BP Pulse Ox 98.8 F 74 19 136/102 97 11/04/18 14:24 11/04/18 14:24 11/04/18 14:24 11/04/18 14:24 11/04/18 14:24 Vital Signs Reviewed: Yes Diagnostics - Vital Signs Vital Signs Temp Pulse Resp BP Pulse Ox 11/04/18 14:24 98.8 F 74 19 136/102 97 - Laboratory Result Diagrams: 11/04/18 15:16 11/04/18 04:03 Lab Statement: Any lab studies that have been ordered have been reviewed, and results considered in the medical decision making process. - Radiology CXR Radiology Interpretation Completed By: Radiologist Summary of Radiographic Findings: No radiographic evidence of acute cardiopulmonary disease. Dr. Wayne has reviewed this radiology report. - EKG 1443 Cardiac Rate: NL - 71 BPM EKG Rhythm: Sinus Rhythm Summary of EKG Findings: NSR at [address] elevations, similar to 11/20/17. Re-Evaluation - Re-Evaluation First Eval Re-Evaluation Time: 18:06 Comment: Discussed results with the patient. Patient states she's doing fine. Disposition - Course Assessment/Plan: This patient is a 63 year old F brought in by ambulance to ED with PMHx of asthma and a chief complaint of SOB since 1200. Patient says this feels like an asthma exacerbation. The CC is described as worsened since onset. The patient rates the pain 0/10 in severity. Symptoms aggravated by nothing. Symptoms alleviated by nothing. Patient reports cough. Patient denies fever, chills, CP, and edema. No hx of COPD. Blood work without any significant abnormality except for potassium level of 3.3, BUN is 33, creatinine is 1.13, glucose 104. ABG shows a pH of 7.42, PCO2 39, PO2 is 128, bicarbonate is 25.5, O2 sat is 99.6 on room air. In the ED course the patient was given multiple DuoNeb since her rheumatoid symptoms have improved. X-ray. Chest x-ray impression: No radiographic evidence of acute cardiopulmonary disease. After these medications the patients symptoms have significantly improved. And I ambulated the patient and she went from 96-95% on room air and had no other symptoms. Therefore I believe that the patient can be discharged home with follow-up with primary care physician. Patient is hemodynamically stable alert oriented 3. . I discussed all the findings and test results with the patient. Patient was instructed to return to the emergency room immediately if any of the symptoms return worsens. Plan of care was discussed with the patient and understands and agrees. All questions were answered at patient satisfaction. There were no further complaints or concerns. Lung exam before discharge: CTA B/L. Good air exchange. No wheezing or crackles heard. CVS: S1 and S2 present. No murmurs appreciated. Patient is alert and oriented x 3. Patient is hemodynamically stable. Patient will be discharged home with follow up PCP in the next 2-3 days - Differential Dx - Cardiopulmonary Differential Diagnoses - Cardiopulmonary: Other - asthma exacerbation - Diagnoses Provider Diagnoses: Asthma exacerbation Discharge - Sign-Out/Discharge Documenting (check all that apply): Patient Departure - discharge Patient Received Moderate/Deep Sedation with Procedure: No - Discharge Plan Condition: Stable Disposition: HOME Prescriptions: predniSONE TAB* [Deltasone 20 MG TAB*] 40 mg PO DAILY #8 tab Patient Education Materials: Asthma (ED) Referrals: Alton Reynoso MD [Primary Care Provider] - 3 Days Additional Instructions: FOLLOW UP WITH YOUR PRIMARY CARE PHYSICIAN IN 3 DAYS. RETURN TO THE ED FOR ANY WORSENING OR NEW SYMPTOMS. - Billing Disposition and Condition Condition: STABLE Disposition: Home - Attestation Statements Document Initiated by Sharondae: Yes Documenting Scribe: David Moran Provider For Whom Isela is Documenting (Include Credential): Andres Wayne MD Scribe Attestation: David Ruiz, scribed for Andres Wayne MD on 11/04/18 at 2114. Scribe Documentation Reviewed: Yes Provider Attestation: The documentation as recorded by the David szymanski accurately reflects the service I personally performed and the decisions made by , Andres Wayne MD Status of Scribe Document: Viewed
--- OUTSIDE RECORDS SUMMARY | 2018-11-04 14:49 | XMS REPORT | Continuity of Care Document ---
:1955 External Reference #:[id number] Author Name Keila Matamoros Care Team Providers Name Role Phone Alton Reynoso MD Primary Care Physician Unavailable Payers Date Identification Numbers Payment Provider Subscriber Effective: 2011 Policy Number: [id number] [employer] Randi Link PayID: [id number] [address] [address] [place] [address] Advance Directives Description No Information Available Problems Date Description Provider Status Onset: 06/13/2013 Multiple joint pain Gee Landry M.D. Active Onset: 06/13/2013 Immunological Findings Gee Landry M.D. Active Nonspecified Other & Unspecified Onset: 08/08/2013 Degenerative joint disease of Gee Landry M.D. Active hand Onset: 09/20/2013 Rheumatoid arthritis Gee Landry M.D. Active Onset: 09/20/2013 Medications Trauma Coordinator (Current) Gee Landry M.D. Active Use Encounter Onset: 02/27/2014 Chest pain Gee Landry M.D. Active Onset: 03/11/2015 Chronic pain syndrome Gee Landry M.D. Active Onset: 03/11/2015 Taking medication Gee Landry M.D. Active Onset: 07/17/2015 Taking medication ISADORA Rosario Active Onset: 10/05/2016 Localized, primary osteoarthritis Cailin Hewitt M.D. Active Onset: 02/15/2018 Disorder of shoulder Dave Sanabria MD Active Onset: 04/13/2018 Obstructive sleep apnea syndrome Miryam Tyler DNP, RN, Active [employer] Onset: 04/13/2018 Hypersomnia Miryam Tyler DNP, RN, Active [employer] Onset: 07/29/2018 Strain of muscle(s) and tendon(s) Dave Sanabria MD Active of the rotator cuff of right shoulder, subsequent encounter Onset: 08/26/2018 Body mass index 40+ - severely Miryam Tyler DNP, RN, Active obese [employer] Family History Date Family Member(s) Observation Comments General Cancer, Breast General Heart Disease General Diabetes General Hypertension General Stroke General Cancer General Rheumatoid Arthritis Father Alcoholism Father Diabetes Mother Diabetes Mother due to Liver Cancer () - 1989 Mother Liver Cancer Mother Breast Cancer Mother Hypertension Siblings 6 Knows 3 well, the other 3 she does not. First Brother Sleep Apnea Suspected First Sister Sleep Apnea Social History Type Date Description Comments Sex Unknown Marital Status Lives With Alone Occupation Disabled Tobacco Use Start: Unknown Quit when she was 16 years Tobacco Use Start: Unknown Never Smoked Cigars Tobacco Use Start: Unknown Never Smoked A Pipe Smokeless Tobacco Never Used Smokeless Tobacco ETOH Use Denies alcohol use Tobacco Use Start: Unknown End: Patient is a former Unknown smoker Recreational Drug Use Denies Drug Use Smoking Status Reviewed: 10/11/18 Patient is a former smoker Exercise Type/Frequency Exercises rarely Pain in the joints which limits how much she can tolerate Exercise Type/Frequency Physical therapy Allergies, Adverse Reactions, Alerts Date Description Reaction Status Severity Comments 05/17/2017 Augmentin Active 12/09/2010 NKDA Inactive Medications Medication Date Status Form Strength Qnty SIG Indications Ordering Provider Tahir Pen 04/04 Active PNKT 40mg/0.8M 6unit inject 40mg M06.09 L s subcutaneou minna Glass every [employer] other week Ferrous Sulfate 04/04 Active Tablets 325(65Fe) 90tab 1 by mouth D50.9 mg s every day Quan, [employer] Sulfasalazine 01/27 Active Tablets 500mg 180ta take one M06.09 ofi bs tablet by Quan, mouth twice [employer]ER a day Lidocaine 12/20 Active Ointment 5% 35.44 Use M25.511 units Sparingly Quan, On Right [employer] Shoulder Once Daily Sulfasalazine 11/14 Active Tablets 500mg 60tab 1 tablet by ofi s mouth twice Quan, a day [employer] Vitamin D3 07/26 Active Tablets 1000Unit 90tab Take One M85.9 Zsofia s Tablet By Quan, Mouth Every [employer] ENG[employer]ER Day Hydroxychloroquine 04/22 Active Tablets 200mg 180ta Take One M06.09 Zsofia bs Tablet By Quan, Mouth Twice [employer] ENG[employer]ER A Day Z79.899 Folic Acid 04/15/2016 Active Tablets 1mg 90tabs 1 by mouth Z79.899 Zsofia every day ISADORA Glass Methotrexate 04/15/2016 Active Tablets 2.5mg 72tabs Take 6 M06.09 Zsofia Sodium Tablets By Quan, ISADORA Mouth Once Weekly Z79.899 Clotrimazole/Betamethasone Active Cream 1-0.05% 45gm apply Unknown Dipropionate twice daily as needed Montelukast Sodium Active Tablets 10mg 30tab 1 po qd J Unknown s 3 0 . 9 Omeprazole Active Capsules 20mg 30cap [address] kenny Chlorthalidone Active Tablets 25mg 5tabs 1 po qd Unknown Losartan Potassium Active Tablets 50mg 30tab 1 po qd Unknown s Bupropion HCL ER (XL) Active Tablets 150mg 1 po qd Unknown ER 24HR Potassium Chloride ER Active Tablets 20Meq Take one Unknown ER Tablets By Mouth Every Day Fexofenadine HCL Active Tablets 180mg Take One J Unknown Tablet By 3 Mouth 0 Every Day . 9 Gabapentin Active Capsules 100mg 2 by Unknown mouth in the morning, 2 by mouth in the afternoon , and one 600 mg capsule by mouth at bedtime Trazodone HCL Active Tablets 50mg 2.5 Unknown tablet at bedtime as needed Hydrocortisone Active Cream 2.5-1% apply Unknown Acetate/Pramoxine twice a day as needed for anal itching (no applicato r needed) Hydrocodone-Acetaminophen Active Tablets 5-325mg 2 by Unknown mouth three times per day as needed Oxaprozin Active Tablets 600mg Take One Unknown Tablet By Mouth one time A Day Fluoxetine HCL Active Capsules 20mg Other Physician Practices Sulfasalazine 12/20/2017 Hx Tablets 500mg 60tab Take One M Zsofia - s Tablet By 0 Quan, 01/27/2018 Mouth 6 [employer] Every Day . For 1 0 Week Then 9 Increase To Take One Tablet By Mouth Twice A Day Humira Pen 10/18/2017 Hx PNKT 40mg/0.8 6unit inject M Zsofia - ML s 40mg 0 Quan, 11/28/2017 subcutane 6 [employer] ENG[employer]ER ously . every 0 other 9 week Simponi Aria 12/17/2016 Hx Solution 50mg/4ML 2 mg/kg M Zsofia - iv 0 Quan, 10/18/2017 infusion 6 [employer] ENG[employer]ER at week . 0, week 4 0 and then 9 every 8 weeks (if there is no infection ) Amoxicillin 10/20/2016 Hx Tablets 500mg 30tab take 1 K Zsofia - s tabs 3x 0 Quan, 12/17/2016 daily by 8 [employer] ENG[employer]ER mouth . daily 8 until you 9 are able to see dentist. Simponi Aria 09/24/2016 Hx Solution 50mg/4ML 2 mg/kg M Zsofia - IV 0 Quan, 12/17/2016 infusion 6 [employer] ENGINEER at week . 0, week 4 0 and then 9 every 8 weeks Leflunomide 03/11/2016 Hx Tablets 20mg 60tab 1 by M Zsofia - s mouth 0 [facility], 04/15/2016 every day 6 [employer] ENG[employer]ER . 0 9 Methotrexate 11/22/2015 Hx Tablets 2.5mg 72tab 6 tbs by M Zsofia - s mouth 0 [facility], 03/11/2016 every 6 [employer]ER week . 0 9 Z79.899 Folic Acid 07/17/2015 - Hx Tablets 1mg 90tabs 1 by mouth Z79.899 Zsofia 03/13/2016 every day Quan, [employer]ER Methotrexate 03/11/2015 - Hx Tablets 2.5mg 48tabs 6 tabs once M79.642 Zsofia 09/22/2015 a week [facility], [facility] M79.641 Z79.899 Prednisone 03/11/2015 - Hx Tablets 5mg 30tabs 1 by mouth M25.50 Zsofia 11/22/2015 every day [facility], [facility] Methotrexate 05/02/2014 - Hx Tablets 2.5mg 8 tabs by 714.0 [place] 03/11/2015 mouth q Germaine Landry Wednesday (not taking) Prednisone (Shade) 04/11/2014 - Hx Tablets 10mg 45tabs 1 tid for [place] 03/11/2015 1 week, Germaine Landry then 1 bid for 1 week then 1 qd Oxaprozin 04/02/2014 - Hx Tablets 600mg 60tabs 1 by mouth Gee 12/17/2016 twice a Germaine Landry day Folic Acid 03/09/2014 - Hx Tablets 1mg 30tabs take one [place] 11/21/2015 tablet by Germaine Landry mouth once daily Hydroxychloroquine 02/27/2014 - Hx Tablets 200mg 60tabs 1 by mouth 719.49 Gee Sulfate 03/11/2015 twice a Germaine Landry day (not taking) Folic Acid 09/20/2013 - Hx Tablets 1mg 30tabs 1 by mouth 714.0 Gee 03/02/2014 every day Germaine Landry Methotrexate 09/20/2013 - Hx Tablets 2.5mg 30tabs Take 6 714.0 Gee 05/02/2014 Tablets By Germaine Landry Mouth Every Week On Wednesday Prednisone 08/08/2013 - Hx Tablets 5mg 70tabs 4 qd x 1 719.49 Gee 02/27/2014 week, 3 qd Germaine Landry x 1 week, 2 qd x 1 week, 1 qd x 1 week [facility] 06/16/2013 - Hx Tablets 0.6mg 30tabs 1 po bid Gee 08/08/2013 Germaine Landry Diclofenac Sodium 05/18/2013 - Hx Tablets DR 75mg 60tabs 1 tab by Leisa 04/02/2014 mouth bid Germaine Hall prn Ditropan XL - Hx Tablets ER 10mg 90tabs 1 po qd Unknown 11/22/2015 24HR (not taking) Nasacort Aq - Hx Aerosol 55mcg 1units 2 sprays [place] 02/27/2014 /Act mariana Hidalgo M.D. nostril qhs C-Pap - Hx no longer Unknown 05/16/2017 using Astepro - Hx Solution 0.15% 3units one puff Unknown 08/25/2018 both sides twice per day Oxybutynin Chloride - Hx Tablets ER 15mg 30tabs 1 po hs Unknown ER 11/22/2015 24HR (not taking) Multi For Her - Hx Tablets 90tabs 1 po qd Unknown 12/17/2016 Magnesium - Hx Capsules 500mg not taking Unknown 05/16/2017 Fiber Gummies - Hx Tablets po qd (not Unknown 11/22/2015 taking) Zoloft - Hx Tablets 50mg 1 by mouth Unknown 04/15/2016 every day Amitriptyline HCL - Hx Tablets 25mg 1 by mouth Unknown 04/15/2016 every night at bedtime Sertraline HCL - Hx Tablets 100mg 1.5 Unknown 08/25/2018 Tablets By Mouth Every Day Gabapentin - Hx Capsules 100mg Linda, 2016 Emily Iglesias MD Lyrica - Hx Capsules 100mg Take One Unknown 09/23/2016 Capsule By Mouth Three Times A Day Maximum Daily Dose 3 Medications Administered in Office Medication Date Status Form Strength Qnty SIG Indications Ordering Provider Triamcinolone Injection Zaneb (Kenalog) 2017 MD Elly Immunizations CPT Code Status Date Vaccine Reaction Lot # [id number] Given 04/04/2018 Influenza Virus Vaccine, [id number] Quadrivalent, Split, Preservative Free 16559 Given 03/22/2017 Influenza Virus Vaccine, [id number] Quadrivalent, Split, Preservative Free [id number] Given 09/24/2016 Pneumococcal Conjugate Vaccine [id number] Valent For Intramuscular Use 71012 Given 04/15/2016 Zoster (Zostavax) no reaction noted [id number] 06287 Given 03/11/2016 Influenza Virus Vaccine, [id number] Quadrivalent, Split, Preservative Free 82430 Given 05/02/2014 Flu Vaccine Split Virus [id number] Preservative Free For Indiv 3Yr Older Vital Signs Date Vital Result Comment 10/11/2018 3:45pm Height 66 inches 5'6" Weight 302.00 lb BP Systolic 132 mmHg BP Diastolic 72 mmHg Respiratory Rate 18 /min Body Temperature 97.7 F Pain Level 7 BMI (Body Mass Index) 48.7 kg/m2 09/01/2018 11:39am Height 66 inches 5'6" Weight 302.00 lb Heart Rate 72 /min BP Systolic 126 mmHg BP Diastolic 84 mmHg Respiratory Rate 18 /min Pain Level 8 BMI (Body Mass Index) 48.7 kg/m2 08/26/2018 11:37am Height 66 inches 5'6" Weight 295.00 lb Heart Rate 68 /min BP Systolic Sitting 118 mmHg Rue large cuff BP Diastolic Sitting 78 mmHg Rue large cuff Respiratory Rate 16 /min O2 % BldC Oximetry 96 % On Ra BMI (Body Mass Index) 47.6 kg/m2 07/29/2018 9:49am Height 66 inches 5'6" Weight 294.00 lb Heart Rate 60 /min BP Systolic 142 mmHg BP Diastolic 80 mmHg Respiratory Rate 18 /min Body Temperature 97.7 F Pain Level 4 BMI (Body Mass Index) 47.4 kg/m2 05/12/2018 2:46pm Height 66 inches 5'6" Weight 292.00 lb BP Systolic 128 mmHg BP Diastolic 66 mmHg Respiratory Rate 18 /min Pain Level 6 BMI (Body Mass Index) 47.1 kg/m2 04/13/2018 1:35pm Height 66 inches 5'6" Weight 292.50 lb Heart Rate 82 /min BP Systolic Sitting 118 mmHg Rue large cuff BP Diastolic Sitting 74 mmHg Rue large cuff Respiratory Rate 16 /min O2 % BldC Oximetry 96 % On Ra BMI (Body Mass Index) 47.2 kg/m2 04/04/2018 2:29pm Height 66 inches 5'6" Weight 289.12 lb Heart Rate 66 /min BP Systolic 120 mmHg BP Diastolic 80 mmHg Pain Level 7 O2 % BldC Oximetry 96 % BMI (Body Mass Index) 46.7 kg/m2 03/22/2018 2:49pm Height 66 inches 5'6" Heart Rate 72 /min BP Systolic Sitting 120 mmHg BP Diastolic Sitting 80 mmHg Respiratory Rate 24 /min Body Temperature 97.7 F Pain Level 5 02/15/2018 2:02pm Height 66 inches 5'6" Weight 284.00 lb Heart Rate 72 /min BP Systolic Sitting 132 mmHg BP Diastolic Sitting 88 mmHg Respiratory Rate 20 /min Body Temperature 98.6 F Pain Level 7 BMI (Body Mass Index) 45.8 kg/m2 01/27/2018 10:52am Height 66 inches 5'6" Weight 284.00 lb Heart Rate 70 /min BP Systolic Sitting 122 mmHg BP Diastolic Sitting 80 mmHg Pain Level 7 O2 % BldC Oximetry 96 % BMI (Body Mass Index) 45.8 kg/m2 12/20/2017 9:18am Height 66 inches 5'6" Weight 284.00 lb Heart Rate 60 /min BP Systolic Sitting 120 mmHg BP Diastolic Sitting 80 mmHg Pain Level 7 O2 % BldC Oximetry 96 % BMI (Body Mass Index) 45.8 kg/m2 11/29/2017 2:55pm Height 66 inches 5'6" Weight 284.00 lb Heart Rate 72 /min BP Systolic Sitting 122 mmHg R forearm BP Diastolic Sitting 82 mmHg R forearm Respiratory Rate 20 /min O2 % BldC Oximetry 97 % BMI (Body Mass Index) 45.8 kg/m2 Neck Circumference in inches 15.5 10/18/2017 9:40am Height 66 inches 5'6" Weight 277.00 lb Heart Rate 73 /min BP Systolic Sitting 122 mmHg BP Diastolic Sitting 78 mmHg Pain Level 5 O2 % BldC Oximetry 97 % BMI (Body Mass Index) 44.7 kg/m2 07/26/2017 10:42am Height 66 inches 5'6" Weight 261.00 lb Heart Rate 74 /min BP Systolic Sitting 128 mmHg BP Diastolic Sitting 70 mmHg Respiratory Rate 16 /min Pain Level 8 BMI (Body Mass Index) 42.1 kg/m2 06/03/2017 10:50am Height 66 inches 5'6" Weight 261.00 lb Heart Rate 74 /min BP Systolic Sitting 126 mmHg BP Diastolic Sitting 82 mmHg Respiratory Rate 16 /min Pain Level 6 BMI (Body Mass Index) 42.1 kg/m2 05/17/2017 1:28pm Height 66 inches 5'6" Weight 263.25 lb with shoes Heart Rate 70 /min BP Systolic Sitting 125 mmHg LA large cuff BP Diastolic Sitting 84 mmHg LA large cuff BMI (Body Mass Index) 42.5 kg/m2 04/22/2017 10:45am Height 66 inches 5'6" Weight 264.00 lb Heart Rate 70 /min BP Systolic Sitting 120 mmHg BP Diastolic Sitting 85 mmHg Body Temperature 98.1 F Pain Level 7 hands and knees bilat. O2 % BldC Oximetry 98 % BMI (Body Mass Index) 42.6 kg/m2 03/22/2017 1:53pm Weight 266.00 lb Heart Rate 60 /min Pain Level 8 O2 % BldC Oximetry 97 % 02/08/2017 3:26pm Weight 269.00 lb Heart Rate 71 /min BP Systolic Sitting 130 mmHg BP Diastolic Sitting 80 mmHg O2 % BldC Oximetry 93 % 12/17/2016 11:20am Weight 267.50 lb Heart Rate 83 /min BP Systolic 134 mmHg BP Diastolic 72 mmHg Body Temperature 97.9 F O2 % BldC Oximetry 92 % 10/20/2016 1:57pm Height 66 inches 5'6" Weight 276.00 lb Heart Rate 70 /min Body Temperature 98.6 F Pain Level 9 BMI (Body Mass Index) 44.5 kg/m2 10/05/2016 3:06pm Height 66 inches 5'6" Weight 275.00 lb Heart Rate 73 /min BP Systolic 132 mmHg BP Diastolic 78 mmHg BMI (Body Mass Index) 44.4 kg/m2 09/24/2016 11:27am Height 65.50 inches 5'5.50" Weight 176.50 lb Heart Rate 70 /min BP Systolic 100 mmHg BP Diastolic 60 mmHg Pain Level 4 O2 % BldC Oximetry 97 % BMI (Body Mass Index) 28.9 kg/m2 07/10/2016 3:44pm Height 65.50 inches 5'5.50" Heart Rate 72 /min BP Systolic Sitting 130 mmHg BP Diastolic Sitting 80 mmHg Respiratory Rate 14 /min Pain Level 7 2016 2:27pm Height 65.50 inches 5'5.50" Weight 288.00 lb Heart Rate 80 /min BP Systolic Sitting 128 mmHg BP Diastolic Sitting 76 mmHg Body Temperature 98.9 F Pain Level 6 BMI (Body Mass Index) 47.2 kg/m2 04/15/2016 1:13pm Height 65.50 inches 5'5.50" Weight 285.00 lb Heart Rate 72 /min BP Systolic Sitting 124 mmHg BP Diastolic Sitting 80 mmHg Pain Level 5 BMI (Body Mass Index) 46.7 kg/m2 03/11/2016 1:05pm Height 65.50 inches 5'5.50" Weight 288.12 lb Heart Rate 80 /min BP Systolic Sitting 126 mmHg BP Diastolic Sitting 80 mmHg Respiratory Rate 14 /min Body Temperature 97.4 F Pain Level 4 BMI (Body Mass Index) 47.2 kg/m2 11/22/2015 1:43pm Height 65.50 inches 5'5.50" Weight 285.00 lb Heart Rate 80 /min BP Systolic Sitting 140 mmHg BP Diastolic Sitting 90 mmHg Body Temperature 98.5 F Pain Level 5 BMI (Body Mass Index) 46.7 kg/m2 07/17/2015 2:56pm Height 65.50 inches 5'5.50" Weight 289.00 lb Heart Rate 64 /min BP Systolic Sitting 124 mmHg BP Diastolic Sitting 84 mmHg Respiratory Rate 14 /min Body Temperature 98.0 F tympanic Pain Level 6 BMI (Body Mass Index) 47.4 kg/m2 03/11/2015 10:49am Height 65.50 inches 5'5.50" Weight 264.38 lb Heart Rate 60 /min BP Systolic Sitting 124 mmHg BP Diastolic Sitting 74 mmHg Respiratory Rate 16 /min Pain Level 8 BMI (Body Mass Index) 43.3 kg/m2 05/02/2014 1:18pm Height 65.50 inches 5'5.50" Weight 246.25 lb Heart Rate 82 /min BP Systolic Sitting 118 mmHg BP Diastolic Sitting 72 mmHg Pain Level 5 BMI (Body Mass Index) 40.4 kg/m2 02/27/2014 1:07pm Weight 247.50 lb Heart Rate 88 /min BP Systolic Sitting 110 mmHg BP Diastolic Sitting 70 mmHg Pain Level 4 hand R 12/28/2013 2:38pm Height 66 inches 5'6" Weight 258.25 lb Heart Rate 80 /min BP Systolic Sitting 130 mmHg BP Diastolic Sitting 84 mmHg Pain Level 8 BMI (Body Mass Index) 41.7 kg/m2 09/20/2013 1:36pm Height 66 inches 5'6" Weight 275.50 lb Heart Rate 107 /min BP Systolic Sitting 142 mmHg BP Diastolic Sitting 78 mmHg BMI (Body Mass Index) 44.5 kg/m2 08/08/2013 10:53am Height 66 inches 5'6" Weight 269.75 lb Heart Rate 87 /min BP Systolic Sitting 150 mmHg BP Diastolic Sitting 82 mmHg BMI (Body Mass Index) 43.5 kg/m2 06/13/2013 2:55pm Height 66 inches 5'6" Weight 272.00 lb Heart Rate 72 /min BP Systolic Sitting 142 mmHg BP Diastolic Sitting 80 mmHg BMI (Body Mass Index) 43.9 kg/m2 05/18/2013 1:34pm Height 66 inches 5'6" Weight 270.00 lb Heart Rate 76 /min BP Systolic 171 mmHg BP Diastolic 95 mmHg BMI (Body Mass Index) 43.6 kg/m2 Results Test Date Facility Test Result H/L Range Note CBC Auto Diff 08/31/2018 [facility] White Blood 6.6 10^3/uL N 3.5-10.[address] [place] [address] [phone] Red Blood Count 3.75 10^6/uL Low 4.00-5.40 Hemoglobin 11.7 g/dL Low 12.0-16.0 Hematocrit 35 % N 35-47 Mean Corpuscular Volume 92 fL N 80-97 Mean Corpuscular Hemoglobin 31 pg N 27-31 Mean Corpuscular HGB Conc 34 g/dL N 31-36 Red Cell Distribution Width 17 % High 10.5-15 Platelet Count 262 10^3/uL N 150-450 Mean Platelet Volume 8.0 fL N 7.4-10.4 Abs Neutrophils 3.6 10^3/uL N 1.5-7.7 Abs Lymphocytes 2.0 10^3/uL N 1.0-4.8 Abs Monocytes 0.6 10^3/uL N 0-0.8 Abs Eosinophils 0.3 10^3/uL N 0-0.6 Abs Basophils 0.1 10^3/uL N 0-0.2 Abs Nucleated RBC 0 10^3/uL Granulocyte % 55.1 % Lymphocyte % 31.1 % Monocyte % 8.9 % Eosinophil % 4.1 % Basophil % 0.8 % Nucleated Red Blood Cells % 0.1 Comp Metabolic Panel 08/31/2018 [facility] Sodium 140 mmol/L N 135-[address] [place] [address] [phone] Potassium 3.9 mmol/L N 3.5-5.0 Chloride 102 mmol/L N 101-111 Co2 Carbon Dioxide 31 mmol/L N 22-32 Anion Gap 7 mmol/L N 2-11 Glucose 93 mg/dL N 70-100 Blood Urea Nitrogen 28 mg/dL High 6-24 Creatinine 1.16 mg/dL High 0.51-0.95 BUN/Creatinine Ratio 24.1 High 8-20 Calcium 9.0 mg/dL N 8.6-10.3 Total Protein 7.1 g/dL N 6.4-8.9 Albumin 3.9 g/dL N 3.2-5.2 Globulin 3.2 g/dL N 2-4 Albumin/Globulin Ratio 1.2 N 1-3 Total Bilirubin 0.30 mg/dL N 0.2-1.0 Alkaline Phosphatase 59 U/L N 34-104 Alt 19 U/L N 7-52 Ast 22 U/L N 13-39 Egfr Non- 47.0 >60 Egfr 56.9 >60 1 Laboratory test 08/31/2018 [facility] C Reactive 5.96 mg/L N < 8.[address] [address] [phone] Erythrocyte Sed Rate 49 mm/Hr High 0-30 2 CBC Auto Diff 07/04/2018 [facility] White Blood 4.9 10^3/uL N 3.5-10.[address] [place] [address] [phone] Red Blood Count 4.18 10^6/uL N 4.00-5.40 Hemoglobin 12.7 g/dL N 12.0-16.0 Hematocrit 38 % N 35-47 Mean Corpuscular Volume 91 fL N 80-97 Mean Corpuscular Hemoglobin 30 pg N 27-31 Mean Corpuscular HGB Conc 34 g/dL N 31-36 Red Cell Distribution Width 15 % N 10.5-15 Platelet Count 239 10^3/uL N 150-450 Mean Platelet Volume 7.9 fL N 7.4-10.4 Abs Neutrophils 2.3 10^3/uL N 1.5-7.7 Abs Lymphocytes 1.7 10^3/uL N 1.0-4.8 Abs Monocytes 0.7 10^3/uL N 0-0.8 Abs Eosinophils 0.1 10^3/uL N 0-0.6 Abs Basophils 0 10^3/uL N 0-0.2 Abs Nucleated RBC 0 10^3/uL Granulocyte % 46.6 % Lymphocyte % 35.4 % Monocyte % 15.3 % Eosinophil % 1.7 % Basophil % 1.0 % Nucleated Red Blood Cells % 0.1 Comp Metabolic Panel 07/04/2018 [facility] Sodium 138 mmol/L N 135-[address] [place] [address] [phone] Potassium 4.2 mmol/L N 3.5-5.0 Chloride 101 mmol/L N 101-111 Co2 Carbon Dioxide 30 mmol/L N 22-32 Anion Gap 7 mmol/L N 2-11 Glucose 90 mg/dL N 70-100 Blood Urea Nitrogen 18 mg/dL N 6-24 Creatinine 1.16 mg/dL High 0.51-0.95 BUN/Creatinine Ratio 15.5 N 8-20 Calcium 9.1 mg/dL N 8.6-10.3 Total Protein 7.3 g/dL N 6.4-8.9 Albumin 3.8 g/dL N 3.2-5.2 Globulin 3.5 g/dL N 2-4 Albumin/Globulin Ratio 1.1 N 1-3 Total Bilirubin 0.40 mg/dL N 0.2-1.0 Alkaline Phosphatase 65 U/L N 34-104 Alt 17 U/L N 7-52 Ast 28 U/L N 13-39 Egfr Non- 47.0 >60 Egfr 56.9 >60 3 Laboratory test 07/04/2018 [facility] Erythrocyte Sed 68 mm/Hr High 0-[address] [place] [address] [phone] C Reactive Protein 15.70 mg/L High <8.01 Quantiferon 04/13/2018 [facility] QuantiFERON-Tb Negative Negative 4 Gold TB [address] [place] [address] [phone] TB1 Ag minus Nil Result 0.01 IU/mL TB2 Ag minus Nil Result 0.01 IU/mL TB Mitogen minus Nil Result 9.23 IU/mL TB Nil Result 0.05 IU/mL 5 CBC No Diff 04/01/2018 [facility] White Blood 9.2 10^3/uL N 3.5-10.[address] [place] [address] [phone] Red Blood Count 3.53 10^6/uL Low 4.00-5.40 Hemoglobin 11.2 g/dL Low 12.0-16.0 Hematocrit 34 % Low 35-47 Mean Corpuscular Volume 96 fL N 80-97 Mean Corpuscular Hemoglobin 32 pg High 27-31 Mean Corpuscular HGB Conc 33 g/dL N 31-36 Red Cell Distribution Width 15 % N 10.5-15 Platelet Count 312 10^3/uL N 150-450 Mean Platelet Volume 7.8 um3 N 7.4-10.4 Iron & Iron Binding 04/01/2018 [facility] Iron 48 g/dL Low 50-212 [address] [place] [address] [phone] Unsaturated Iron Binding 379 g/dL Total Iron Binding Capacity 427 g/dL N 250-450 Transferrin 305 mg/dL N 203-362 % Iron Saturation 11 % Low 15-55 Laboratory test 04/01/2018 [facility] C Reactive 18.18 mg/L High <8.01 finding [address] [facility] [place] [address] [phone] Erythrocyte Sed Rate 0 mm/Hr N 0-30 Comp Metabolic Panel 04/01/2018 [facility] Sodium 141 mmol/L N 135-145 [address] [place] [address] [phone] Potassium 3.8 mmol/L N 3.5-5.0 Chloride 103 mmol/L N 101-111 Co2 Carbon Dioxide 32 mmol/L N 22-32 Anion Gap 6 mmol/L N 2-11 Glucose 96 mg/dL N 70-100 Blood Urea Nitrogen 32 mg/dL High 6-24 Creatinine 0.97 mg/dL High 0.51-0.95 BUN/Creatinine Ratio 33.0 High 8-20 Calcium 8.9 mg/dL N 8.6-10.3 Total Protein 6.7 g/dL N 6.4-8.9 Albumin 3.8 g/dL N 3.2-5.2 Globulin 2.9 g/dL N 2-4 Albumin/Globulin Ratio 1.3 N 1-3 Total Bilirubin 0.30 mg/dL N 0.2-1.0 Alkaline Phosphatase 84 U/L N 34-104 Alt 15 U/L N 7-52 Ast 19 U/L N 13-39 Egfr Non- 58.0 >60 Egfr 70.2 >60 6 Lipid Profile 01/21/2018 [facility] Triglycerides 147 mg/dL 7, 8 (Trig/Chol/HDL) [address] [place] [address] [phone] Cholesterol 161 mg/dL 9 HDL Cholesterol 48.5 mg/dL 10 LDL Cholesterol 83 mg/dL 11 CBC Auto Diff 01/21/2018 [facility] White Blood 5.8 10^3/uL N 3.5-10.[address] [place] [address] [phone] Red Blood Count 3.70 10^6/uL Low 4.00-5.40 Hemoglobin 11.5 g/dL Low 12.0-16.0 Hematocrit 35 % N 35-47 Mean Corpuscular Volume 93 fL N 80-97 Mean Corpuscular Hemoglobin 31 pg N 27-31 Mean Corpuscular HGB Conc 33 g/dL N 31-36 Red Cell Distribution Width 16 % High 10.5-15 Platelet Count 262 10^3/uL N 150-450 Mean Platelet Volume 7.9 um3 N 7.4-10.4 Abs Neutrophils 3.7 10^3/uL N 1.5-7.7 Abs Lymphocytes 1.5 10^3/uL N 1.0-4.8 Abs Monocytes 0.5 10^3/uL N 0-0.8 Abs Eosinophils 0.2 10^3/uL N 0-0.6 Abs Basophils 0 10^3/uL N 0-0.2 Abs Nucleated RBC 0 10^3/uL Granulocyte % 63.4 % N 38-83 Lymphocyte % 25.1 % N 25-47 Monocyte % 7.8 % High 0-7 Eosinophil % 3.0 % N 0-6 Basophil % 0.7 % N 0-2 Nucleated Red Blood Cells % 0 Laboratory test 01/21/2018 [facility] Erythrocyte Sed 55 mm/Hr High 0-[address] [place] [address] [phone] Laboratory test 01/21/2018 [facility] C Reactive 14.74 High < 8.[address] Protein mg/[place] [address] [phone] Comp Metabolic 01/21/2018 [facility] Sodium 140 N 135-[address] mmol/[place] [address] [phone] Potassium 4.6 mmol/L N 3.5-5.0 Chloride 102 mmol/L N 101-111 Co2 Carbon Dioxide 31 mmol/L N 22-32 Anion Gap 7 mmol/L N 2-11 Glucose 93 mg/dL N 70-100 Blood Urea Nitrogen 24 mg/dL N 6-24 Creatinine 1.04 mg/dL High 0.51-0.95 BUN/Creatinine Ratio 23.1 High 8-20 Calcium 9.1 mg/dL N 8.6-10.3 Total Protein 7.0 g/dL N 6.4-8.9 Albumin 3.8 g/dL N 3.2-5.2 Globulin 3.2 g/dL N 2-4 Albumin/Globulin Ratio 1.2 N 1-3 Total Bilirubin 0.40 mg/dL N 0.2-1.0 Alkaline Phosphatase 74 U/L N 34-104 Alt 14 U/L N 7-52 Ast 22 U/L N 13-39 Egfr Non- 53.5 >60 Egfr 64.8 >60 12 CBC Auto Diff 10/15/2017 [facility] White Blood 7.4 10^3/uL N 3.5-10.[address] [place] [address] [phone] Red Blood Count 3.80 10^6/uL Low 4.0-5.4 Hemoglobin 11.6 g/dL Low 12.0-16.0 Hematocrit 35 % N 35-47 Mean Corpuscular Volume 92 fL N 80-97 Mean Corpuscular Hemoglobin 31 pg N 27-31 Mean Corpuscular HGB Conc 33 g/dL N 31-36 Red Cell Distribution Width 15 % N 10.5-15 Platelet Count 309 10^3/uL N 150-450 Mean Platelet Volume 8.4 um3 N 7.4-10.4 Abs Neutrophils 4.9 10^3/uL N 1.5-7.7 Abs Lymphocytes 1.7 10^3/uL N 1.0-4.8 Abs Monocytes 0.6 10^3/uL N 0-0.8 Abs Eosinophils 0.2 10^3/uL N 0-0.6 Abs Basophils 0 10^3/uL N 0-0.2 Abs Nucleated RBC 0 10^3/uL Granulocyte % 65.5 % N 38-83 Lymphocyte % 22.7 % Low 25-47 Monocyte % 8.0 % High 0-7 Eosinophil % 3.2 % N 0-6 Basophil % 0.6 % N 0-2 Nucleated Red Blood Cells % 0 Comp Metabolic Panel 10/15/2017 [facility] Sodium 140 mmol/L N 139-[address] [place] [address] [phone] Potassium 4.2 mmol/L N 3.5-5.0 Chloride 102 mmol/L N 101-111 Co2 Carbon Dioxide 31 mmol/L N 22-32 Anion Gap 7 mmol/L N 2-11 Glucose 97 mg/dL N 70-100 Blood Urea Nitrogen 25 mg/dL High 6-24 Creatinine 1.02 mg/dL High 0.51-0.95 BUN/Creatinine Ratio 24.5 High 8-20 Calcium 9.2 mg/dL N 8.6-10.3 Total Protein 7.3 g/dL N 6.4-8.9 Albumin 3.7 g/dL N 3.2-5.2 Globulin 3.6 g/dL N 2-4 Albumin/Globulin Ratio 1.0 N 1-3 Total Bilirubin 0.40 mg/dL N 0.2-1.0 Alkaline Phosphatase 74 U/L N 34-104 Alt 13 U/L N 7-52 Ast 17 U/L N 13-39 Egfr Non- 54.7 >60 Egfr 70.4 >60 13 Laboratory test 10/15/2017 [facility] C Reactive 14.77 mg/L High < 5.00 [address] [place] [address] [phone] TSH (Thyroid Stim Horm) 2.11 mcIU/mL N 0.34-5.60 15 Hemoglobin A1c (Glyco HGB) 5.1 % N 4.0-5.6 16 Laboratory test 04/22/2017 [facility] C Reactive 6.65 mg/L High < 5.[address] [place] [address] [phone] Erythrocyte Sed Rate 72 mm/Hr High 0-30 Comp Metabolic Panel 04/22/2017 [facility] Sodium 137 mmol/L N 133-145 [address] [place] [address] [phone] Potassium 3.7 mmol/L N 3.5-5.0 Chloride 99 mmol/L Low 101-111 Co2 Carbon Dioxide 32 mmol/L N 22-32 Anion Gap 6 mmol/L N 2-11 Glucose 91 mg/dL N 70-100 Blood Urea Nitrogen 31 mg/dL High 6-24 Creatinine 1.03 mg/dL High 0.51-0.95 BUN/Creatinine Ratio 30.1 High 8-20 Calcium 8.9 mg/dL N 8.6-10.3 Total Protein 7.1 g/dL N 6.4-8.9 Albumin 3.8 g/dL N 3.2-5.2 Globulin 3.3 g/dL N 2-4 Albumin/Globulin Ratio 1.2 N 1-3 Total Bilirubin 0.30 mg/dL N 0.2-1.0 Alkaline Phosphatase 59 U/L N 34-104 Alt 17 U/L N 7-52 Ast 18 U/L N 13-39 Egfr Non- 54.3 N >60 Egfr 69.8 N >60 18 CBC Auto Diff 04/22/2017 [facility] White Blood 4.6 10^3/uL N 3.5-10.[address] [place] [address] [phone] Red Blood Count 3.83 10^6/uL Low 4.0-5.4 Hemoglobin 11.9 g/dL Low 12.0-16.0 Hematocrit 35 % N 35-47 Mean Corpuscular Volume 91 fL N 80-97 Mean Corpuscular Hemoglobin 31 pg N 27-31 Mean Corpuscular HGB Conc 34 g/dL N 31-36 Red Cell Distribution Width 15 % N 10.5-15 Platelet Count 275 10^3/uL N 150-450 Mean Platelet Volume 8 um3 N 7.4-10.4 Abs Neutrophils 2.6 10^3/uL N 1.5-7.7 Abs Lymphocytes 1.5 10^3/uL N 1.0-4.8 Abs Monocytes 0.3 10^3/uL N 0-0.8 Abs Eosinophils 0.2 10^3/uL N 0-0.6 Abs Basophils 0 10^3/uL N 0-0.2 Abs Nucleated RBC 0 10^3/uL N Granulocyte % 55.8 % N 38-83 Lymphocyte % 33.2 % N 25-47 Monocyte % 6.7 % N 1-9 Eosinophil % 3.3 % N 0-6 Basophil % 1.0 % N 0-2 Nucleated Red Blood Cells % 0 N Comp Metabolic Panel 01/14/2017 [facility] Sodium 137 mmol/L N 133-[address] [place] [address] [phone] Potassium 3.7 mmol/L N 3.5-5.0 Chloride 105 mmol/L N 101-111 Co2 Carbon Dioxide 26 mmol/L N 22-32 Anion Gap 6 mmol/L N 2-11 Glucose 86 mg/dL N 70-100 Blood Urea Nitrogen 22 mg/dL N 6-24 Creatinine 0.98 mg/dL High 0.51-0.95 BUN/Creatinine Ratio 22.4 High 8-20 Calcium 8.4 mg/dL Low 8.6-10.3 Total Protein 6.9 g/dL N 6.4-8.9 Albumin 3.2 g/dL N 3.2-5.2 Globulin 3.7 g/dL N 2-4 Albumin/Globulin Ratio 0.9 Low 1-3 Total Bilirubin 0.30 mg/dL N 0.2-1.0 Alkaline Phosphatase 64 U/L N 34-104 Alt 16 U/L N 7-52 Ast 22 U/L N 13-39 Egfr Non- 57.5 N >60 Egfr 74.0 N >60 19 Laboratory test 01/14/2017 [facility] C Reactive 13.75 mg/L High < 5.00 [address] [place] [address] [phone] CBC Auto Diff 01/14/2017 [facility] White Blood 8.4 N 3.5- 10.[address] Count 10^3/[place] [address] [phone] Red Blood Count 3.94 10^6/uL Low 4.0-5.4 Hemoglobin 12.0 g/dL N 12.0-16.0 Hematocrit 36 % N 35-47 Mean Corpuscular Volume 92 fL N 80-97 Mean Corpuscular Hemoglobin 30 pg N 27-31 Mean Corpuscular HGB Conc 33 g/dL N 31-36 Red Cell Distribution Width 17 % High 10.5-15 Platelet Count 272 10^3/uL N 150-450 Mean Platelet Volume 8 um3 N 7.4-10.4 Abs Neutrophils 5.4 10^3/uL N 1.5-7.7 Abs Lymphocytes 1.8 10^3/uL N 1.0-4.8 Abs Monocytes 0.8 10^3/uL N 0-0.8 Abs Eosinophils 0.4 10^3/uL N 0-0.6 Abs Basophils 0 10^3/uL N 0-0.2 Abs Nucleated RBC 0.01 10^3/uL N Granulocyte % 64.0 % N 38-83 Lymphocyte % 21.5 % Low 25-47 Monocyte % 9.7 % High 1-9 Eosinophil % 4.3 % N 0-6 Basophil % 0.5 % N 0-2 Nucleated Red Blood Cells % 0.1 N Laboratory 01/14/2017 [facility] Erythrocyte Sed 81 mm/Hr High 0-30 test finding [address] [place] [address] [phone] Laboratory 09/30/2016 [facility] C Reactive 16.71 High < 5.00 21, test finding [address] Protein mg/L 22 [place] [address] [phone] CBC Auto Diff 09/30/2016 [facility] White Blood 11.8 High 3.5- 10.[address] Count 10^3/uL [place], [place] [id number] [phone] Red Blood Count 4.19 10^6/uL N 4.0-5.4 Hemoglobin 12.3 g/dL N 12.0-16.0 Hematocrit 37 % N 35-47 Mean Corpuscular Volume 88 fL N 80-97 Mean Corpuscular Hemoglobin 29 pg N 27-31 Mean Corpuscular HGB Conc 33 g/dL N 31-36 Red Cell Distribution Width 18 % High 10.5-15 Abs Neutrophils 8.7 10^3/uL High 1.5-7.7 Abs Lymphocytes 2.1 10^3/uL N 1.0-4.8 Abs Monocytes 0.6 10^3/uL N 0-0.8 Abs Eosinophils 0.3 10^3/uL N 0-0.6 Abs Basophils 0.1 10^3/uL N 0-0.2 Abs Nucleated RBC 0 10^3/uL N Granulocyte % 73.6 % N 38-83 Lymphocyte % 17.9 % Low 25-47 Monocyte % 4.8 % N 1-9 Eosinophil % 2.9 % N 0-6 Basophil % 0.8 % N 0-2 Nucleated Red Blood Cells % 0 N Platelet Count 267 10^3/uL N 150-450 Mean Platelet Volume 9 um3 N 7.4-10.4 Laboratory test 09/30/2016 [facility] Uric Acid 6.4 mg/dL N 2.3-6.6 [address] [place] [address] [phone] Quantiferon Gold 09/30/2016 [facility] M tuberculosis Negative N Negative [address] [place] [address] [phone] TB Ag minus Nil Result 0.01 IU/mL N TB Mitogen minus Nil Result > 10.00 IU/mL N TB Nil Result 0.06 IU/mL N 25 Hepatitis 09/30/2016 [facility] Hepatitis C Nonreactive N Nonreactive Acute Panel [address] [place] [address] [phone] Hepatitis A AB Igm Nonreactive N Nonreactive Hepatitis B Core AB Igm Nonreactive N Nonreactive Hepatitis B Surface Ag Nonreactive N Nonreactive Comp Metabolic Panel 09/30/2016 [facility] Sodium 137 mmol/L N 133-[address] [place] [address] [phone] Potassium 3.3 mmol/L Low 3.5-5.0 Chloride 99 mmol/L Low 101-111 Co2 Carbon Dioxide 31 mmol/L N 22-32 Anion Gap 7 mmol/L N 2-11 Glucose 102 mg/dL High 70-100 Blood Urea Nitrogen 19 mg/dL N 6-24 Creatinine 1.07 mg/dL High 0.51-0.95 BUN/Creatinine Ratio 17.8 N 8-20 Calcium 8.9 mg/dL N 8.6-10.3 Total Protein 7.3 g/dL N 6.4-8.9 Albumin 3.8 g/dL N 3.2-5.2 Globulin 3.5 g/dL N 2-4 Albumin/Globulin Ratio 1.1 N 1-3 Total Bilirubin 0.40 mg/dL N 0.2-1.0 Alkaline Phosphatase 86 U/L N 34-104 Alt 17 U/L N 7-52 Ast 20 U/L N 13-39 Egfr Non- 52.0 N >60 Egfr 66.8 N >60 26 Laboratory test 09/30/2016 [facility] Erythrocyte Sed 76 mm/Hr High 0-[address] [place] [address] [phone] Comp Metabolic 09/22/2016 [facility] Sodium 138 N 133-[address] mmol/[place] [address] [phone] Potassium 4.1 mmol/L N 3.5-5.0 Chloride 105 mmol/L N 101-111 Co2 Carbon Dioxide 24 mmol/L N 22-32 Anion Gap 9 mmol/L N 2-11 Glucose 89 mg/dL N 70-100 Blood Urea Nitrogen 19 mg/dL N 6-24 Creatinine 0.96 mg/dL High 0.51-0.95 BUN/Creatinine Ratio 19.8 N 8-20 Calcium 9.2 mg/dL N 8.6-10.3 Total Protein 7.1 g/dL N 6.4-8.9 Albumin 3.7 g/dL N 3.2-5.2 Globulin 3.4 g/dL N 2-4 Albumin/Globulin Ratio 1.1 N 1-3 Total Bilirubin 0.40 mg/dL N 0.2-1.0 Alkaline Phosphatase 78 U/L N 34-104 Alt 22 U/L N 7-52 Ast 28 U/L N 13-39 Egfr Non- 58.9 N >60 Egfr 75.7 N >60 27 Laboratory test 09/22/2016 [facility] C Reactive 15.15 mg/L High < 5.00 [address] [place] [address] [phone] CBC Auto Diff 07/09/2016 [facility] White Blood 9.1 N 3.5- 10.[address] Count 10^3/[place] [address] [phone] Red Blood Count 4.11 10^6/uL N 4.0-5.4 Hemoglobin 11.8 g/dL Low 12.0-16.0 Hematocrit 36 % N 35-47 Mean Corpuscular Volume 86 fL N 80-97 Mean Corpuscular Hemoglobin 29 pg N 27-31 Mean Corpuscular HGB Conc 33 g/dL N 31-36 Red Cell Distribution Width 16 % High 10.5-15 Platelet Count 329 10^3/uL N 150-450 Mean Platelet Volume 8 um3 N 7.4-10.4 Abs Neutrophils 5.8 10^3/uL N 1.5-7.7 Abs Lymphocytes 2.2 10^3/uL N 1.0-4.8 Abs Monocytes 0.9 10^3/uL High 0-0.8 Abs Eosinophils 0.2 10^3/uL N 0-0.6 Abs Basophils 0.1 10^3/uL N 0-0.2 Abs Nucleated RBC 0.01 10^3/uL N Granulocyte % 63.5 % N 38-83 Lymphocyte % 23.6 % Low 25-47 Monocyte % 9.5 % High 1-9 Eosinophil % 2.3 % N 0-6 Basophil % 1.1 % N 0-2 Nucleated Red Blood Cells % 0.1 N Comp Metabolic Panel 07/09/2016 [facility] Sodium 138 mmol/L N 133-[address] [place] [address] [phone] Potassium 3.7 mmol/L N 3.5-5.0 Chloride 102 mmol/L N 101-111 Co2 Carbon Dioxide 29 mmol/L N 22-32 Anion Gap 7 mmol/L N 2-11 Glucose 102 mg/dL High 70-100 Blood Urea Nitrogen 22 mg/dL N 6-24 Creatinine 1.02 mg/dL High 0.51-0.95 BUN/Creatinine Ratio 21.6 High 8-20 Calcium 9.4 mg/dL N 8.6-10.3 Total Protein 6.8 g/dL N 6.4-8.9 Albumin 3.7 g/dL N 3.2-5.2 Globulin 3.1 g/dL N 2-4 Albumin/Globulin Ratio 1.2 N 1-3 Total Bilirubin 0.30 mg/dL N 0.2-1.0 Alkaline Phosphatase 73 U/L N 34-104 Alt 16 U/L N 7-52 Ast 23 U/L N 13-39 Egfr Non- 54.9 N >60 Egfr 70.6 N >60 29 Laboratory test 07/09/2016 [facility] C Reactive 18.73 mg/L High < 5.00 [address] [place] [address] [phone] Erythrocyte Sed Rate 67 mm/Hr High 0-30 CBC Auto Diff 05/27/2016 [facility] White Blood 7.6 10^3/uL N 3.5-10.[address] [place] [address] [phone] Red Blood Count 4.22 10^6/uL N 4.0-5.4 Hemoglobin 11.9 g/dL Low 12.0-16.0 Hematocrit 36 % N 35-47 Mean Corpuscular Volume 85 fL N 80-97 Mean Corpuscular Hemoglobin 28 pg N 27-31 Mean Corpuscular HGB Conc 33 g/dL N 31-36 Red Cell Distribution Width 16 % High 10.5-15 Platelet Count 286 10^3/uL N 150-450 Mean Platelet Volume 9 um3 N 7.4-10.4 Abs Neutrophils 4.6 10^3/uL N 1.5-7.7 Abs Lymphocytes 1.7 10^3/uL N 1.0-4.8 Abs Monocytes 0.9 10^3/uL High 0-0.8 Abs Eosinophils 0.3 10^3/uL N 0-0.6 Abs Basophils 0 10^3/uL N 0-0.2 Abs Nucleated RBC 0 10^3/uL N Granulocyte % 61.1 % N 38-83 Lymphocyte % 22.0 % Low 25-47 Monocyte % 12.1 % High 1-9 Eosinophil % 4.3 % N 0-6 Basophil % 0.5 % N 0-2 Nucleated Red Blood Cells % 0 N Comp Metabolic Panel 05/27/2016 [facility] Sodium 138 mmol/L N 133-[address] [place] [address] [phone] Potassium 3.4 mmol/L Low 3.5-5.0 Chloride 100 mmol/L Low 101-111 Co2 Carbon Dioxide 32 mmol/L N 22-32 Anion Gap 6 mmol/L N 2-11 Glucose 90 mg/dL N 70-100 Blood Urea Nitrogen 20 mg/dL N 6-24 Creatinine 1.10 mg/dL High 0.51-0.95 BUN/Creatinine Ratio 18.2 N 8-20 Calcium 8.9 mg/dL N 8.6-10.3 Total Protein 6.8 g/dL N 6.4-8.9 Albumin 3.5 g/dL N 3.2-5.2 Globulin 3.3 g/dL N 2-4 Albumin/Globulin Ratio 1.1 N 1-3 Total Bilirubin 0.30 mg/dL N 0.2-1.0 Alkaline Phosphatase 77 U/L N 34-104 Alt 16 U/L N 7-52 Ast 21 U/L N 13-39 Egfr Non- 50.5 N >60 Egfr 64.9 N >60 31 Laboratory test 05/27/2016 [facility] Erythrocyte Sed 86 mm/Hr High 0-30 [address] [place] [place] [address] [phone] C Reactive Protein 22.68 mg/L High < 5.00 33 CBC Auto Diff 04/10/2016 [facility] White Blood 9.2 10^3/uL N 3.5-10.[address] [place] [address] [phone] Red Blood Count 4.59 10^6/uL N 4.0-5.4 Hemoglobin 12.7 g/dL N 12.0-16.0 Hematocrit 39 % N 35-47 Mean Corpuscular Volume 84 fL N 80-97 Mean Corpuscular Hemoglobin 28 pg N 27-31 Mean Corpuscular HGB Conc 33 g/dL N 31-36 Red Cell Distribution Width 15 % N 10.5-15 Platelet Count 325 10^3/uL N 150-450 Mean Platelet Volume 9 um3 N 7.4-10.4 Abs Neutrophils 6.1 10^3/uL N 1.5-7.7 Abs Lymphocytes 1.9 10^3/uL N 1.0-4.8 Abs Monocytes 0.8 10^3/uL N 0-0.8 Abs Eosinophils 0.3 10^3/uL N 0-0.6 Abs Basophils 0.1 10^3/uL N 0-0.2 Abs Nucleated RBC 0 10^3/uL N Granulocyte % 66.2 % N 38-83 Lymphocyte % 20.6 % Low 25-47 Monocyte % 9.1 % High 1-9 Eosinophil % 2.9 % N 0-6 Basophil % 1.2 % N 0-2 Nucleated Red Blood Cells % 0 N Comp Metabolic Panel 04/10/2016 [facility] Sodium 139 mmol/L N 133-[address] [place], [place] [id number] [phone] Potassium 3.7 mmol/L N 3.5-5.0 Chloride 101 mmol/L N 101-111 Co2 Carbon Dioxide 30 mmol/L N 22-32 Anion Gap 8 mmol/L N 2-11 Glucose 87 mg/dL N 70-100 Blood Urea Nitrogen 24 mg/dL N 6-24 Creatinine 1.09 mg/dL High 0.51-0.95 BUN/Creatinine Ratio 22.0 High 8-20 Calcium 9.2 mg/dL N 8.6-10.3 Total Protein 7.2 g/dL N 6.4-8.9 Albumin 3.9 g/dL N 3.2-5.2 Globulin 3.3 g/dL N 2-4 Albumin/Globulin Ratio 1.2 N 1-3 Total Bilirubin 0.40 mg/dL N 0.2-1.0 Alkaline Phosphatase 99 U/L N 34-104 Alt 17 U/L N 7-52 Ast 20 U/L N 13-39 Egfr Non- 51.0 N >60 Egfr 65.6 N >60 34 Laboratory test 04/10/2016 [facility] C Reactive 16.20 mg/L High < 5.00 [address] [place] [place] [address] [phone] Erythrocyte Sed Rate 89 mm/Hr High 0-30 36 Urine Culture And 01/28/2016 [facility] Urine Culture SEE RESULT [address] [place] [address] [phone] Laboratory test 01/28/2016 [facility] Lipase 21 U/L N 11.0- finding [address] 82.0 [place] [address] [phone] C Reactive Protein 13.57 mg/L High < 5.00 38 Lactic Acid 1.0 mmol/L N 0.5-2.0 39 Comp Metabolic Panel 01/28/2016 [facility] Sodium 136 mmol/L N 133-[address] [place] [address] [phone] Potassium 3.4 mmol/L Low 3.5-5.0 Chloride 100 mmol/L Low 101-111 Co2 Carbon Dioxide 27 mmol/L N 22-32 Anion Gap 9 mmol/L N 2-11 Glucose 97 mg/dL N 70-100 Blood Urea Nitrogen 21 mg/dL N 6-24 Creatinine 1.15 mg/dL High 0.51-0.95 BUN/Creatinine Ratio 18.3 N 8-20 Calcium 9.3 mg/dL N 8.6-10.3 Total Protein 7.7 g/dL N 6.4-8.9 Albumin 3.9 g/dL N 3.2-5.2 Globulin 3.8 g/dL N 2-4 Albumin/Globulin Ratio 1.0 N 1-3 Total Bilirubin 0.40 mg/dL N 0.2-1.0 Alkaline Phosphatase 72 U/L N 34-104 Alt 16 U/L N 7-52 Ast 21 U/L N 13-39 Egfr Non- 48.0 N >60 Egfr 61.7 N >60 40 Urinalysis Profile 01/28/2016 [facility] Urine Color Yellow N [address] [place] [address] [phone] Urine Appearance Clear N Urine Specific [place] 1.016 N 1.010-1.030 Urine pH 6.0 N 5-9 Urine Urobilinogen Negative N Negative Urine Ketones Negative N Negative Urine Protein Negative N Negative Urine Leukocytes Trace Abnormal Negative Urine Blood Negative N Negative Urine Nitrite Negative N Negative Urine Bilirubin Negative N Negative Urine Glucose Negative N Negative Urine White Blood Cell Trace(0-5/hpf) N Absent Urine Red Blood Cell Absent N Absent Urine Bacteria Absent N Absent Urine Squamous Epithelial Cell Present Abnormal Absent CBC Auto Diff 01/28/2016 [facility] White Blood 9.4 10^3/uL N 3.5-10.[address] [place] [place] [address] [phone] Red Blood Count 4.57 10^6/uL N 4.0-5.4 Hemoglobin 12.9 g/dL N 12.0-16.0 Hematocrit 38 % N 35-47 Mean Corpuscular Volume 84 fL N 80-97 Mean Corpuscular Hemoglobin 28 pg N 27-31 Mean Corpuscular HGB Conc 34 g/dL N 31-36 Red Cell Distribution Width 14 % N 10.5-15 Platelet Count 305 10^3/uL N 150-450 Mean Platelet Volume 8 um3 N 7.4-10.4 Abs Neutrophils 6.9 10^3/uL N 1.5-7.7 Abs Lymphocytes 1.6 10^3/uL N 1.0-4.8 Abs Monocytes 0.6 10^3/uL N 0-0.8 Abs Eosinophils 0.2 10^3/uL N 0-0.6 Abs Basophils 0.1 10^3/uL N 0-0.2 Abs Nucleated RBC 0.01 10^3/uL N Granulocyte % 73.1 % N 38-83 Lymphocyte % 17.4 % Low 25-47 Monocyte % 6.8 % N 1-9 Eosinophil % 2.1 % N 0-6 Basophil % 0.6 % N 0-2 Nucleated Red Blood Cells % 0.1 N Laboratory test 11/26/2015 [facility] Uric Acid 7.2 mg/dL High 2.3-6.[address] [place] [address] [phone] Rheumatoid Factor <15 IU/mL N <15 41 Cyclic Citrullinated Pep Igg 20.6 U Abnormal 42 Comp Metabolic Panel 11/26/2015 [facility] Sodium 136 mmol/L N 133-[address] [place] [address] [phone] Potassium 3.4 mmol/L Low 3.5-5.0 Chloride 98 mmol/L Low 101-111 Co2 Carbon Dioxide 31 mmol/L N 22-32 Anion Gap 7 mmol/L N 2-11 Glucose 95 mg/dL N 70-100 Blood Urea Nitrogen 26 mg/dL High 6-24 Creatinine 1.06 mg/dL High 0.51-0.95 BUN/Creatinine Ratio 24.5 High 8-20 Calcium 9.3 mg/dL N 8.6-10.3 Total Protein 7.4 g/dL N 6.4-8.9 Albumin 3.9 g/dL N 3.2-5.2 Globulin 3.5 g/dL N 2-4 Albumin/Globulin Ratio 1.1 N 1-3 Total Bilirubin 0.40 mg/dL N 0.2-1.0 Alkaline Phosphatase 64 U/L N 34-104 Alt 16 U/L N 7-52 Ast 20 U/L N 13-39 Egfr Non- 52.7 N >60 Egfr 67.8 N >60 43 Laboratory test 11/26/2015 [facility] C Reactive 26.29 mg/L High < 5.00 [address] [place] [address] [phone] CBC Auto Diff 11/26/2015 [facility] White Blood 7.7 N 3.5- 10.[address] Count 10^3/[place] [address] [phone] Red Blood Count 4.05 10^6/uL N 4.0-5.4 Hemoglobin 12.0 g/dL N 12.0-16.0 Hematocrit 36 % N 35-47 Mean Corpuscular Volume 88 fL N 80-97 Mean Corpuscular Hemoglobin 30 pg N 27-31 Mean Corpuscular HGB Conc 34 g/dL N 31-36 Red Cell Distribution Width 14 % N 10.5-15 Platelet Count 305 10^3/uL N 150-450 Mean Platelet Volume 9 um3 N 7.4-10.4 Abs Neutrophils 5.0 10^3/uL N 1.5-7.7 Abs Lymphocytes 1.8 10^3/uL N 1.0-4.8 Abs Monocytes 0.6 10^3/uL N 0-0.8 Abs Eosinophils 0.2 10^3/uL N 0-0.6 Abs Basophils 0.1 10^3/uL N 0-0.2 Abs Nucleated RBC 0.01 10^3/uL N Granulocyte % 65.0 % N 38-83 Lymphocyte % 23.2 % Low 25-47 Monocyte % 7.9 % N 1-9 Eosinophil % 3.0 % N 0-6 Basophil % 0.9 % N 0-2 Nucleated Red Blood Cells % 0.1 N Laboratory test 11/26/2015 [facility] Erythrocyte Sed 86 mm/Hr High 0-[address] [place] [address] [phone] CBC Auto Diff 07/11/2015 [facility] White Blood 11.0 High 3.5- 10.[address] Count 10^3/[place] [address] [phone] Red Blood Count 4.11 10^6/uL N 4.0-5.4 Hemoglobin 12.4 g/dL N 12.0-16.0 Hematocrit 38 % N 35-47 Mean Corpuscular Volume 92 fL N 80-97 Mean Corpuscular Hemoglobin 30 pg N 27-31 Mean Corpuscular HGB Conc 33 g/dL N 31-36 Red Cell Distribution Width 15 % N 10.5-15 Platelet Count 313 10^3/uL N 150-450 Mean Platelet Volume 8 um3 N 7.4-10.4 Abs Neutrophils 8.8 10^3/uL High 1.5-7.7 Abs Lymphocytes 1.4 10^3/uL N 1.0-4.8 Abs Monocytes 0.6 10^3/uL N 0-0.8 Abs Eosinophils 0.1 10^3/uL N 0-0.6 Abs Basophils 0.1 10^3/uL N 0-0.2 Abs Nucleated RBC 0 10^3/uL N Granulocyte % 80.4 % N 38-83 Lymphocyte % 12.7 % Low 25-47 Monocyte % 5.4 % N 1-9 Eosinophil % 0.9 % N 0-6 Basophil % 0.6 % N 0-2 Nucleated Red Blood Cells % 0 N Comp Metabolic Panel 07/11/2015 [facility] Sodium 136 mmol/L N 133-[address] [place] [address] [phone] Potassium 3.8 mmol/L N 3.5-5.0 Chloride 98 mmol/L Low 101-111 Co2 Carbon Dioxide 30 mmol/L N 22-32 Anion Gap 8 mmol/L N 2-11 Glucose 116 mg/dL High 70-100 Blood Urea Nitrogen 29 mg/dL High 6-24 Creatinine 1.04 mg/dL High 0.51-0.95 BUN/Creatinine Ratio 27.9 High 8-20 Calcium 9.5 mg/dL N 8.6-10.3 Total Protein 7.5 g/dL N 6.4-8.9 Albumin 4.0 g/dL N 3.2-5.2 Globulin 3.5 g/dL N 2-4 Albumin/Globulin Ratio 1.1 N 1-3 Total Bilirubin 0.40 mg/dL N 0.2-1.0 Alkaline Phosphatase 61 U/L N 34-104 Alt 17 U/L N 7-52 Ast 21 U/L N 13-39 Egfr Non- 53.9 N >60 Egfr 69.3 N >60 45 Laboratory test 07/11/2015 [facility] Erythrocyte Sed 89 mm/Hr High 0-[address] [place] [address] [phone] C Reactive Protein 22.80 mg/L High < 5.00 46 CBC Auto Diff 04/06/2014 [facility] White Blood 10.5 10^3/uL N 4.8-10.[address] [place] [address] [phone] Red Blood Count 3.89 10^6/uL Low 4.0-5.4 Hemoglobin 12.9 g/dL N 12.0-16.0 Hematocrit 36 % N 35-47 Mean Corpuscular Volume 93 fL N 80-97 Mean Corpuscular Hemoglobin 33 pg High 27-31 Mean Corpuscular HGB Conc 36 g/dL N 31-36 Red Cell Distribution Width 14 % N 10.5-15 Platelet Count 303 10^3/uL N 150-450 Mean Platelet Volume 8 um3 N 7.4-10.4 Abs Neutrophils 8.8 10^3/uL High 1.5-7.7 Abs Lymphocytes 1.3 10^3/uL N 1.0-4.8 Abs Monocytes 0.2 10^3/uL N 0-0.8 Abs Eosinophils 0.1 10^3/uL N 0-0.6 Abs Basophils 0 10^3/uL N 0-0.2 Abs Nucleated RBC 0.01 10^3/uL N Granulocyte % 83.7 % High 38-83 Lymphocyte % 12.5 % Low 25-47 Monocyte % 2.3 % N 1-9 Eosinophil % 1.0 % N 0-6 Basophil % 0.5 % N 0-2 Nucleated Red Blood Cells % 0.1 N Comp Metabolic Panel 04/06/2014 [facility] Sodium 135 mmol/L N 133-145 [address] [place] [address] [phone] Potassium 3.4 mmol/L Low 3.7-5.6 Chloride 97 mmol/L Low 101-111 Co2 Carbon Dioxide 31 mmol/L N 22-32 Anion Gap 7 mmol/L N 2-11 Glucose 108 mg/dL High 70-100 Blood Urea Nitrogen 24 mg/dL N 6-24 Creatinine 1.07 mg/dL High 0.51-0.95 BUN/Creatinine Ratio 22.4 High 8-20 Calcium 10.3 mg/dL N 8.6-10.3 Total Protein 8.1 g/dL N 6.4-8.9 Albumin 4.5 g/dL N 3.2-5.2 Globulin 3.6 g/dL N 2-4 Albumin/Globulin Ratio 1.3 N 1-3 Total Bilirubin 0.40 mg/dL N 0.2-1.0 Alkaline Phosphatase 75 U/L N 34-104 Alt 31 U/L N 7-52 Ast 26 U/L N 13-39 Egfr Non- 52.5 N >60 Egfr 67.5 N >60 47 Laboratory test 04/06/2014 [facility] Erythrocyte Sed 58 mm/Hr High 0-[address] Rate [place] [id number] [phone] C Reactive Protein 20.15 mg/L High < 5.00 48 Laboratory test finding 02/27/2014 Scleroderma Ab <0.2 U N 49 Uric Acid 8.2 mg/dL High 2.3-6.6 Quantiferon Gold TB 02/27/2014 M tuberculosis by Quantiferon Negative N Negative Tuberculosis Antigen Value 0.01 IU/mL N 50 Hepatitis Acute Panel 02/27/2014 Hepatitis C Antibody Nonreactive N Nonreactive Hepatitis A AB IgM Nonreactive N Nonreactive Hepatitis B Core IgM Nonreactive N Nonreactive Hepatitis B Surface Antigen Nonreactive N Nonreactive Laboratory test finding 02/27/2014 C Reactive Protein 24.38 mg/L High < 5.00 51 Erythrocyte Sed Rate 49 mm/Hr High 0-30 Comp Metabolic Panel 02/27/2014 Sodium 136 mmol/L N 133-145 Potassium 3.9 mmol/L N 3.7-5.6 Chloride 97 mmol/L Low 101-111 Co2 Carbon Dioxide 33 mmol/L High 22-32 Anion Gap 6 mmol/L N 2-11 Glucose 93 mg/dL N 70-100 Blood Urea Nitrogen 26 mg/dL High 6-24 Creatinine 1.04 mg/dL High 0.51-0.95 BUN/Creatinine Ratio 25.0 High 8-20 Calcium 9.6 mg/dL N 8.6-10.3 Total Protein 7.2 g/dL N 6.4-8.9 Albumin 4.1 g/dL N 3.2-5.2 Globulin 3.1 g/dL N 2-4 Albumin/Globulin Ratio 1.3 N 1-3 Total Bilirubin 0.50 mg/dL N 0.2-1.0 Alkaline Phosphatase 68 U/L N 34-104 Alt 31 U/L N 7-52 Ast 23 U/L N 13-39 Egfr Non- 54.2 N >60 Egfr 69.8 N >60 52 CBC Auto Diff 02/27/2014 White Blood Count 9.4 10^3/uL N 4.8-10.8 Red Blood Count 4.01 10^6/uL N 4.0-5.4 Hemoglobin 13.5 g/dL N 12.0-16.0 Hematocrit 38 % N 35-47 Mean Corpuscular Volume 96 fL N 80-97 Mean Corpuscular Hemoglobin 34 pg High 27-31 Mean Corpuscular HGB Conc 35 g/dL N 31-36 Red Cell Distribution Width 14 % N 10.5-15 Platelet Count 324 10^3/uL N 150-450 Mean Platelet Volume 9 um3 N 7.4-10.4 Abs Neutrophils 5.6 10^3/uL N 1.5-7.7 Abs Lymphocytes 2.9 10^3/uL N 1.0-4.8 Abs Monocytes 0.7 10^3/uL N 0-0.8 Abs Eosinophils 0.2 10^3/uL N 0-0.6 Abs Basophils 0.1 10^3/uL N 0-0.2 Abs Nucleated RBC 0 10^3/uL N Granulocyte % 59.1 % N 38-83 Lymphocyte % 30.6 % N 25-47 Monocyte % 7.6 % N 1-9 Eosinophil % 1.7 % N 0-6 Basophil % 1.0 % N 0-2 Nucleated Red Blood Cells % 0 N Comp Metabolic Panel 01/29/2014 [facility] Sodium 138 mmol/L N 133-[address] [place] [address] [phone] Potassium 4.2 mmol/L N 3.7-5.6 Chloride 98 mmol/L Low 101-111 Co2 Carbon Dioxide 36 mmol/L High 22-32 Anion Gap 4 mmol/L N 2-11 Glucose 89 mg/dL N 70-100 Blood Urea Nitrogen 22 mg/dL N 6-24 Creatinine 1.15 mg/dL High 0.51-0.95 BUN/Creatinine Ratio 19.1 N 8-20 Calcium 10.2 mg/dL N 8.6-10.3 Total Protein 7.4 g/dL N 6.4-8.9 Albumin 4.2 g/dL N 3.2-5.2 Globulin 3.2 g/dL N 2-4 Albumin/Globulin Ratio 1.3 N 1-3 Total Bilirubin 0.50 mg/dL N 0.2-1.0 Alkaline Phosphatase 68 U/L N 34-104 Alt 31 U/L N 7-52 Ast 24 U/L N 13-39 Egfr Non- 48.3 N >60 Egfr 62.1 N >60 53 Laboratory test 01/29/2014 [facility] C Reactive 20.97 High < 5.00 [address] Protein mg/[place] [address] [phone] Laboratory test 01/29/2014 [facility] Erythrocyte Sed 42 mm/Hr High 0-[address] [place] [place] [address] [phone] CBC Auto Diff 01/29/2014 [facility] White Blood 8.9 N 4.8- 10.[address] Count 10^3/[place] [address] [phone] Red Blood Count 3.97 10^6/uL Low 4.0-5.4 Hemoglobin 13.1 g/dL N 12.0-16.0 Hematocrit 38 % N 35-47 Mean Corpuscular Volume 95 fL N 80-97 Mean Corpuscular Hemoglobin 33 pg High 27-31 Mean Corpuscular HGB Conc 35 g/dL N 31-36 Red Cell Distribution Width 14 % N 10.5-15 Platelet Count 301 10^3/uL N 150-450 Mean Platelet Volume 8 um3 N 7.4-10.4 Abs Neutrophils 5.8 10^3/uL N 1.5-7.7 Abs Lymphocytes 2.3 10^3/uL N 1.0-4.8 Abs Monocytes 0.5 10^3/uL N 0-0.8 Abs Eosinophils 0.2 10^3/uL N 0-0.6 Abs Basophils 0.1 10^3/uL N 0-0.2 Abs Nucleated RBC 0 10^3/uL N Granulocyte % 65.7 % N 38-83 Lymphocyte % 25.4 % N 25-47 Monocyte % 6.0 % N 1-9 Eosinophil % 1.9 % N 0-6 Basophil % 1.0 % N 0-2 Nucleated Red Blood Cells % 0 N CBC Auto Diff 12/28/2013 White Blood Count 9.0 10^3/uL N 4.8-10.8 Red Blood Count 3.83 10^6/uL Low 4.0-5.4 Hemoglobin 12.7 g/dL N 12.0-16.0 Hematocrit 36 % N 35-47 Mean Corpuscular Volume 94 fL N 80-97 Mean Corpuscular Hemoglobin 33 pg High 27-31 Mean Corpuscular HGB Conc 35 g/dL N 31-36 Red Cell Distribution Width 14 % N 10.5-15 Platelet Count 299 10^3/uL N 150-450 Mean Platelet Volume 9 um3 N 7.4-10.4 Abs Neutrophils 5.3 10^3/uL N 1.5-7.7 Abs Lymphocytes 2.7 10^3/uL N 1.0-4.8 Abs Monocytes 0.7 10^3/uL N 0-0.8 Abs Eosinophils 0.3 10^3/uL N 0-0.6 Abs Basophils 0.1 10^3/uL N 0-0.2 Abs Nucleated RBC 0 10^3/uL N Granulocyte % 59.1 % N 38-83 Lymphocyte % 29.8 % N 25-47 Monocyte % 7.3 % N 1-9 Eosinophil % 3.0 % N 0-6 Basophil % 0.8 % N 0-2 Nucleated Red Blood Cells % 0 N Comp Metabolic Panel 12/28/2013 Sodium 138 mmol/L N 133-145 Potassium 3.5 mmol/L Low 3.7-5.6 Chloride 98 mmol/L Low 101-111 Co2 Carbon Dioxide 33 mmol/L High 22-32 Anion Gap 7 mmol/L N 2-11 Glucose 113 mg/dL High 70-100 Blood Urea Nitrogen 24 mg/dL N 6-24 Creatinine 1.12 mg/dL High 0.51-0.95 BUN/Creatinine Ratio 21.4 High 8-20 Calcium 10.0 mg/dL N 8.6-10.3 Total Protein 7.1 g/dL N 6.4-8.9 Albumin 4.0 g/dL N 3.2-5.2 Globulin 3.1 g/dL N 2-4 Albumin/Globulin Ratio 1.3 N 1-3 Total Bilirubin 0.40 mg/dL N 0.2-1.0 Alkaline Phosphatase 72 U/L N 34-104 Alt 28 U/L N 7-52 Ast 25 U/L N 13-39 Egfr Non- 49.8 N >60 Egfr 64.0 N >60 55 Laboratory test finding 12/28/2013 Erythrocyte Sed Rate 51 mm/Hr High 0- 30 C Reactive Protein 23.20 mg/L High < 5.00 56 CBC Auto Diff 09/25/2013 [facility] White Blood 8.3 10^3/uL N 4.8-10.[address] [place] [address] [phone] Red Blood Count 4.16 10^6/uL N 4.0-5.4 Hemoglobin 12.7 g/dL N 12.0-16.0 Hematocrit 38 % N 35-47 Mean Corpuscular Volume 90 fL N 80-97 Mean Corpuscular Hemoglobin 31 pg N 27-31 Mean Corpuscular HGB Conc 34 g/dL N 31-36 Red Cell Distribution Width 14 % N 10.5-15 Platelet Count 267 10^3/uL N 150-450 Mean Platelet Volume 8 um3 N 7.4-10.4 Abs Neutrophils 4.4 10^3/uL N 1.5-7.7 Abs Lymphocytes 3.0 10^3/uL N 1.0-4.8 Abs Monocytes 0.7 10^3/uL N 0-0.8 Abs Eosinophils 0.2 10^3/uL N 0-0.6 Abs Basophils 0 10^3/uL N 0-0.2 Abs Nucleated RBC 0 10^3/uL N Granulocyte % 52.5 % N 38-83 Lymphocyte % 36.5 % N 25-47 Monocyte % 8.1 % N 1-9 Eosinophil % 2.4 % N 0-6 Basophil % 0.5 % N 0-2 Nucleated Red Blood Cells % 0 N Comp Metabolic Panel 09/25/2013 [facility] Sodium 138 mmol/L N 133-[address] [place] [address] [phone] Potassium 4.3 mmol/L N 3.7-5.6 Chloride 100 mmol/L Low 101-111 Co2 Carbon Dioxide 33 mmol/L High 22-32 Anion Gap 5 mmol/L N 2-11 Glucose 95 mg/dL N 70-100 Blood Urea Nitrogen 27 mg/dL High 6-24 Creatinine 1.03 mg/dL High 0.51-0.95 BUN/Creatinine Ratio 26.2 High 8-20 Calcium 10.3 mg/dL N 8.6-10.3 Total Protein 6.8 g/dL N 6.4-8.9 Albumin 3.9 g/dL N 3.2-5.2 Globulin 2.9 g/dL N 2-4 Albumin/Globulin Ratio 1.3 N 1-3 Total Bilirubin 0.30 mg/dL N 0.2-1.0 Alkaline Phosphatase 57 U/L N 34-104 Alt 43 U/L N 7-52 Ast 30 U/L N 13-39 Egfr Non- 54.8 N >60 Egfr 70.5 N >60 57 Laboratory test 09/25/2013 [facility] Erythrocyte Sed 49 mm/Hr High 0-[address] [place] [address] [phone] C Reactive Protein 15.48 mg/L High < 5.00 58 CBC Auto Diff 06/13/2013 [facility] White Blood 10.7 10^3/uL 4.8-10.[address] [place] [address] [phone] Red Blood Count 4.29 10^6/uL 4.0-5.4 Hemoglobin 12.7 g/dL 12.0-16.0 Hematocrit 38 % 35-47 Mean Corpuscular Volume 88 fL 80-97 Mean Corpuscular Hemoglobin 30 pg 27-31 Mean Corpuscular HGB Conc 34 g/dL 31-36 Red Cell Distribution Width 14 % 10.5-15 Platelet Count 276 10^3/uL 150-450 Mean Platelet Volume 9 um3 7.4-10.4 Abs Neutrophils 6.9 10^3/uL 1.5-7.7 Abs Lymphocytes 3.0 10^3/uL 1.0-4.8 Abs Monocytes 0.6 10^3/uL 0-0.8 Abs Eosinophils 0.2 10^3/uL 0-0.6 Abs Basophils 0.1 10^3/uL 0-0.2 Abs Nucleated RBC 0 10^3/uL Granulocyte % 64.1 % 38-83 Lymphocyte % 27.5 % 25-47 Monocyte % 5.5 % 1-9 Eosinophil % 2.2 % 0-6 Basophil % 0.7 % 0-2 Nucleated Red Blood Cells % 0 Comp Metabolic Panel 06/13/2013 [facility] Sodium 136 mmol/L 133-[address] [place] [address] [phone] Potassium 3.9 mmol/L 3.5-5.0 Chloride 101 mmol/L 101-111 Co2 Carbon Dioxide 29.0 mmol/L 22-32 Anion Gap 6.0 mmol/L 2-11 Glucose 95 mg/dL 70-100 Blood Urea Nitrogen 31 mg/dL High 6-24 Creatinine 1.20 mg/dL 0.50-1.40 BUN/Creatinine Ratio 25.8 High 8-20 Calcium 9.5 mg/dL 8.1-9.9 Total Protein 7.5 g/dL 6.2-8.1 Albumin 3.9 g/dL 3.6-5.4 Globulin 3.6 g/dL 2-4 Albumin/Globulin Ratio 1.1 1-3 Total Bilirubin 0.7 mg/dL 0.4-1.5 Alkaline Phosphatase 77 U/L 30-110 Alt 31 U/L 14-54 Ast 30 U/L 12-42 Egfr Non- 46.0 >60 Egfr 59.1 >60 59 Laboratory test 06/13/2013 [facility] C Reactive 1.7 mg/dL High Less than finding [address] [facility] Protein 0.5 [place] [address] [phone] Erythrocyte Sed Rate 56 mm/Hr High 0-30 Rheumatoid Factor <15 IU/mL <15 60 Cyclic Citrullinated Pept IgG <15.6 U 61 Rosie Screen Negative Negative 62 Neutrophil Cytoplasmic 06/13/2013 [facility] C-Anca Negative Negative AB [address] [place] [address] [phone] P Anca Negative Negative Anca Reviewed By MD Artie Kan <SEE NOTE> 63 Laboratory test 06/13/2013 [facility] Uric Acid 8.6 mg/dL High 2.6-7.[address] [place] [address] [phone] Hla B27 06/13/2013 [facility] Hla B27 Negative 64 [address] [place] [address] [phone] Hla B27 Interp See Comment 65 1 Because ethnic data is not always readily available, this report includes an eGFR for both -Americans and non- Americans. The National Kidney Disease Education Program (NKDEP) does not endorse the use of the MDRD equation for patients that are not between the ages of 18 and 70, are , have extremes of body size, muscle mass, or nutritional status, or are non- or non-. According to the National Kidney Foundation, irrespective of diagnosis, the stage of the disease is based on the level of kidney function: Stage Description GFR(mL/min/1.73 m(2)) 1 Kidney damage with normal or decreased GFR 90 2 Kidney damage with mild decrease in GFR 60-89 3 Moderate decrease in GFR 30-59 4 Severe decrease in GFR 15-29 5 Kidney failure <15 (or dialysis) 2 Test Performed by: [facility] [address], [place] [address] Artie Scruggs M.D. Director of Laboratory 3 Because ethnic data is not always readily available, this report includes an eGFR for both -Americans and non- Americans. The National Kidney Disease Education Program (NKDEP) does not endorse the use of the MDRD equation for patients that are not between the ages of 18 and 70, are , have extremes of body size, muscle mass, or nutritional status, or are non- or non-. According to the National Kidney Foundation, irrespective of diagnosis, the stage of the disease is based on the level of kidney function: Stage Description GFR(mL/min/1.73 m(2)) 1 Kidney damage with normal or decreased GFR 90 2 Kidney damage with mild decrease in GFR 60-89 3 Moderate decrease in GFR 30-59 4 Severe decrease in GFR 15-29 5 Kidney failure <15 (or dialysis) 4 No interferon-gamma response to M. tuberculosis antigens was detected. Infection with M. tuberculosis is unlikely. A single negative result does not exclude infection with M. tuberculosis. In patients at high risk for M.tuberculosis infection, a second test should be considered in accordance with the 2017 ATS/IDSA/CDC Clinical Practice Guidelines for Diagnosis of Tuberculosis in Adults and Children [Zurdoinslindsayn LOREE et. al. Clin. Infect. Dis. 2017;64(2):111-115]. 5 Test Performed by: [facility] [address] [place] [address] 6 Because ethnic data is not always readily available, this report includes an eGFR for both -Americans and non- Americans. The National Kidney Disease Education Program (NKDEP) does not endorse the use of the MDRD equation for patients that are not between the ages of 18 and 70, are , have extremes of body size, muscle mass, or nutritional status, or are non- or non-. According to the National Kidney Foundation, irrespective of diagnosis, the stage of the disease is based on the level of kidney function: Stage Description GFR(mL/min/1.73 m(2)) 1 Kidney damage with normal or decreased GFR 90 2 Kidney damage with mild decrease in GFR 60-89 3 Moderate decrease in GFR 30-59 4 Severe decrease in GFR 15-29 5 Kidney failure <15 (or dialysis) 7 PT IS NON-FASTING 8 Desirable: <150 Borderline High: 150-199 High: 200-499 Very High: >500 9 Desirable: <200 Borderline High: 200-239 High: >239 10 Low: <40 Desirable: 40-60 High: >60 11 Desirable: <100 Near Optimal: 100-129 Borderline High: 130-159 High: 160-189 Very High: >189 12 Because ethnic data is not always readily available, this report includes an eGFR for both -Americans and non- Americans. The National Kidney Disease Education Program (NKDEP) does not endorse the use of the MDRD equation for patients that are not between the ages of 18 and 70, are , have extremes of body size, muscle mass, or nutritional status, or are non- or non-. According to the National Kidney Foundation, irrespective of diagnosis, the stage of the disease is based on the level of kidney function: Stage Description GFR(mL/min/1.73 m(2)) 1 Kidney damage with normal or decreased GFR 90 2 Kidney damage with mild decrease in GFR 60-89 3 Moderate decrease in GFR 30-59 4 Severe decrease in GFR 15-29 5 Kidney failure <15 (or dialysis) 13 Because ethnic data is not always readily available, this report includes an eGFR for both -Americans and non- Americans. The National Kidney Disease Education Program (NKDEP) does not endorse the use of the MDRD equation for patients that are not between the ages of 18 and 70, are , have extremes of body size, muscle mass, or nutritional status, or are non- or non-. According to the National Kidney Foundation, irrespective of diagnosis, the stage of the disease is based on the level of kidney function: Stage Description GFR(mL/min/1.73 m(2)) 1 Kidney damage with normal or decreased GFR 90 2 Kidney damage with mild decrease in GFR 60-89 3 Moderate decrease in GFR 30-59 4 Severe decrease in GFR 15-29 5 Kidney failure <15 (or dialysis) 14 Acute inflammation: >10.00 15 [id number] Therapeutic target for the treatment of diabetes mellitus patients is <7% HBA1C, and in selective patients <6.0%. Please refer to [place] [employer] diabetic care guidelines for further information. 17 Acute inflammation: >10.00 18 Because ethnic data is not always readily available, this report includes an eGFR for both -Americans and non- Americans. The National Kidney Disease Education Program (NKDEP) does not endorse the use of the MDRD equation for patients that are not between the ages of 18 and 70, are , have extremes of body size, muscle mass, or nutritional status, or are non- or non-. According to the National Kidney Foundation, irrespective of diagnosis, the stage of the disease is based on the level of kidney function: Stage Description GFR(mL/min/1.73 m(2)) 1 Kidney damage with normal or decreased GFR 90 2 Kidney damage with mild decrease in GFR 60-89 3 Moderate decrease in GFR 30-59 4 Severe decrease in GFR 15-29 5 Kidney failure <15 (or dialysis) 19 Because ethnic data is not always readily available, this report includes an eGFR for both -Americans and non- Americans. The National Kidney Disease Education Program (NKDEP) does not endorse the use of the MDRD equation for patients that are not between the ages of 18 and 70, are , have extremes of body size, muscle mass, or nutritional status, or are non- or non-. According to the National Kidney Foundation, irrespective of diagnosis, the stage of the disease is based on the level of kidney function: Stage Description GFR(mL/min/1.73 m(2)) 1 Kidney damage with normal or decreased GFR 90 2 Kidney damage with mild decrease in GFR 60-89 3 Moderate decrease in GFR 30-59 4 Severe decrease in GFR 15-29 5 Kidney failure <15 (or dialysis) 20 Acute inflammation: >10.00 21 STANDING ORDER ENTERED 05/27/16 EXPIRES 10/14/16 22 Acute inflammation: >10.00 23 1x order 24 No interferon-gamma response to M. tuberculosis antigens was detected. Infection with M. tuberculosis is unlikely. A negative result alone does not exclude infection with M. tuberculosis. For detailed information regarding test interpretation see: [email or web address]test-catalog/ Clinical+and+Interpretive/65537 25 Test Performed by: [facility] - [address] [address] 26 Because ethnic data is not always readily available, this report includes an eGFR for both -Americans and non- Americans. The National Kidney Disease Education Program (NKDEP) does not endorse the use of the MDRD equation for patients that are not between the ages of 18 and 70, are , have extremes of body size, muscle mass, or nutritional status, or are non- or non-. According to the National Kidney Foundation, irrespective of diagnosis, the stage of the disease is based on the level of kidney function: Stage Description GFR(mL/min/1.73 m(2)) 1 Kidney damage with normal or decreased GFR 90 2 Kidney damage with mild decrease in GFR 60-89 3 Moderate decrease in GFR 30-59 4 Severe decrease in GFR 15-29 5 Kidney failure <15 (or dialysis) 27 Because ethnic data is not always readily available, this report includes an eGFR for both -Americans and non- Americans. The National Kidney Disease Education Program (NKDEP) does not endorse the use of the MDRD equation for patients that are not between the ages of 18 and 70, are , have extremes of body size, muscle mass, or nutritional status, or are non- or non-. According to the National Kidney Foundation, irrespective of diagnosis, the stage of the disease is based on the level of kidney function: Stage Description GFR(mL/min/1.73 m(2)) 1 Kidney damage with normal or decreased GFR 90 2 Kidney damage with mild decrease in GFR 60-89 3 Moderate decrease in GFR 30-59 4 Severe decrease in GFR 15-29 5 Kidney failure <15 (or dialysis) 28 Acute inflammation: >10.00 29 Because ethnic data is not always readily available, this report includes an eGFR for both -Americans and non- Americans. The National Kidney Disease Education Program (NKDEP) does not endorse the use of the MDRD equation for patients that are not between the ages of 18 and 70, are , have extremes of body size, muscle mass, or nutritional status, or are non- or non-. According to the National Kidney Foundation, irrespective of diagnosis, the stage of the disease is based on the level of kidney function: Stage Description GFR(mL/min/1.73 m(2)) 1 Kidney damage with normal or decreased GFR 90 2 Kidney damage with mild decrease in GFR 60-89 3 Moderate decrease in GFR 30-59 4 Severe decrease in GFR 15-29 5 Kidney failure <15 (or dialysis) 30 Acute inflammation: >10.00 31 Because ethnic data is not always readily available, this report includes an eGFR for both -Americans and non- Americans. The National Kidney Disease Education Program (NKDEP) does not endorse the use of the MDRD equation for patients that are not between the ages of 18 and 70, are , have extremes of body size, muscle mass, or nutritional status, or are non- or non-. According to the National Kidney Foundation, irrespective of diagnosis, the stage of the disease is based on the level of kidney function: Stage Description GFR(mL/min/1.73 m(2)) 1 Kidney damage with normal or decreased GFR 90 2 Kidney damage with mild decrease in GFR 60-89 3 Moderate decrease in GFR 30-59 4 Severe decrease in GFR 15-29 5 Kidney failure <15 (or dialysis) 32 standing order 33 Acute inflammation: >10.00 34 Because ethnic data is not always readily available, this report includes an eGFR for both -Americans and non- Americans. The National Kidney Disease Education Program (NKDEP) does not endorse the use of the MDRD equation for patients that are not between the ages of 18 and 70, are , have extremes of body size, muscle mass, or nutritional status, or are non- or non-. According to the National Kidney Foundation, irrespective of diagnosis, the stage of the disease is based on the level of kidney function: Stage Description GFR(mL/min/1.73 m(2)) 1 Kidney damage with normal or decreased GFR 90 2 Kidney damage with mild decrease in GFR 60-89 3 Moderate decrease in GFR 30-59 4 Severe decrease in GFR 15-29 5 Kidney failure <15 (or dialysis) 35 Acute inflammation: >10.00 36 PRN ENTERED: 10/15/15 PRN EXP: 04/14/16 37 SEE RESULT BELOW Name: RANDI LINK : [address]: Orlin Herndon MD Acct: [id number] Unit: [id number] AGE: 60 Location: ED Re01/28/16 SEX: F Status: DEP ER SPEC: [id number] JAYESH: 01/28/16-[address] [facility] [address]: Orlin Herndon MD REQ: [id number] RECD: 01/28/16-160 STATUS: TIMOTHY MARCOS DR: Iraj Glass MAC ARTIST _ SOURCE: URINE SPDESC: ORDERED: Urine Culture Procedure Result Reported Site Urine Culture Final 01/29/16- 1623 ML No growth of clinically significant organisms * ML - MAIN LAB (PSC1) . END OF REPORT * ML=Testing performed at Main Lab DEPARTMENT OF PATHOLOGY, [address] [place] [address] Artie Scruggs M.D. Director [facility] # [id number] 38 Acute inflammation: >10.00 39 [facility] Severe Sepsis and Septic Shock Management Bundle Measure requires all lactic acids initially measuring >2.0 mmol/L be repeated. 40 Because ethnic data is not always readily available, this report includes an eGFR for both -Americans and non- Americans. The National Kidney Disease Education Program (NKDEP) does not endorse the use of the MDRD equation for patients that are not between the ages of 18 and 70, are , have extremes of body size, muscle mass, or nutritional status, or are non- or non-. According to the National Kidney Foundation, irrespective of diagnosis, the stage of the disease is based on the level of kidney function: Stage Description GFR(mL/min/1.73 m(2)) 1 Kidney damage with normal or decreased GFR 90 2 Kidney damage with mild decrease in GFR 60-89 3 Moderate decrease in GFR 30-59 4 Severe decrease in GFR 15-29 5 Kidney failure <15 (or dialysis) 41 Test Performed by: [place] [id number] [employer] Developer: Eligio Masterson II, M.D., Ph.D. 42 Interpretation: Weak Positive (20.0-39.9) REFERENCE VALUE <20.0 (Negative) Test Performed by: [facility] [address] [place] [address] [employer] Developer: Eligio Masterson II, M.D., Ph.D. 43 Because ethnic data is not always readily available, this report includes an eGFR for both -Americans and non- Americans. The National Kidney Disease Education Program (NKDEP) does not endorse the use of the MDRD equation for patients that are not between the ages of 18 and 70, are , have extremes of body size, muscle mass, or nutritional status, or are non- or non-. According to the National Kidney Foundation, irrespective of diagnosis, the stage of the disease is based on the level of kidney function: Stage Description GFR(mL/min/1.73 m(2)) 1 Kidney damage with normal or decreased GFR 90 2 Kidney damage with mild decrease in GFR 60-89 3 Moderate decrease in GFR 30-59 4 Severe decrease in GFR 15-29 5 Kidney failure <15 (or dialysis) 44 Acute inflammation: >10.00 45 Because ethnic data is not always readily available, this report includes an eGFR for both -Americans and non- Americans. The National Kidney Disease Education Program (NKDEP) does not endorse the use of the MDRD equation for patients that are not between the ages of 18 and 70, are , have extremes of body size, muscle mass, or nutritional status, or are non- or non-. According to the National Kidney Foundation, irrespective of diagnosis, the stage of the disease is based on the level of kidney function: Stage Description GFR(mL/min/1.73 m(2)) 1 Kidney damage with normal or decreased GFR 90 2 Kidney damage with mild decrease in GFR 60-89 3 Moderate decrease in GFR 30-59 4 Severe decrease in GFR 15-29 5 Kidney failure <15 (or dialysis) 46 Acute inflammation: >10.00 47 Because ethnic data is not always readily available, this report includes an eGFR for both -Americans and non- Americans. The National Kidney Disease Education Program (NKDEP) does not endorse the use of the MDRD equation for patients that are not between the ages of 18 and 70, are , have extremes of body size, muscle mass, or nutritional status, or are non- or non-. According to the National Kidney Foundation, irrespective of diagnosis, the stage of the disease is based on the level of kidney function: Stage Description GFR(mL/min/1.73 m(2)) 1 Kidney damage with normal or decreased GFR 90 2 Kidney damage with mild decrease in GFR 60-89 3 Moderate decrease in GFR 30-59 4 Severe decrease in GFR 15-29 5 Kidney failure <15 (or dialysis) 48 Acute inflammation: >10.00 49 -- REFERENCE VALUE -- <1.0 (Negative) Test Performed by: [place] [address] [employer] Developer: Alberto Thorpe III, M.D. 50 This is a qualitative test. The TB antigen IU/mL value is required for documentation on certain government reporting forms (e.g., Form I-693), but this value should not be used to monitor disease progression or response to therapy. Diagnosing or excluding tuberculosis disease, and assessing the probability of LTBI, require a combination of epidemiological, historical, medical, and diagnostic findings that should be taken into account when interpreting QuantiFERON-TB results. Test Performed by: [place] [address] [employer] Developer: Alberto Thorpe III, M.D. 51 Acute inflammation: >10.00 52 Because ethnic data is not always readily available, this report includes an eGFR for both -Americans and non- Americans. The National Kidney Disease Education Program (NKDEP) does not endorse the use of the MDRD equation for patients that are not between the ages of 18 and 70, are , have extremes of body size, muscle mass, or nutritional status, or are non- or non-. According to the National Kidney Foundation, irrespective of diagnosis, the stage of the disease is based on the level of kidney function: Stage Description GFR(mL/min/1.73 m(2)) 1 Kidney damage with normal or decreased GFR 90 2 Kidney damage with mild decrease in GFR 60-89 3 Moderate decrease in GFR 30-59 4 Severe decrease in GFR 15-29 5 Kidney failure <15 (or dialysis) 53 Because ethnic data is not always readily available, this report includes an eGFR for both -Americans and non- Americans. The National Kidney Disease Education Program (NKDEP) does not endorse the use of the MDRD equation for patients that are not between the ages of 18 and 70, are , have extremes of body size, muscle mass, or nutritional status, or are non- or non-. According to the National Kidney Foundation, irrespective of diagnosis, the stage of the disease is based on the level of kidney function: Stage Description GFR(mL/min/1.73 m(2)) 1 Kidney damage with normal or decreased GFR 90 2 Kidney damage with mild decrease in GFR 60-89 3 Moderate decrease in GFR 30-59 4 Severe decrease in GFR 15-29 5 Kidney failure <15 (or dialysis) 54 Acute inflammation: >10.00 55 Because ethnic data is not always readily available, this report includes an eGFR for both -Americans and non- Americans. The National Kidney Disease Education Program (NKDEP) does not endorse the use of the MDRD equation for patients that are not between the ages of 18 and 70, are , have extremes of body size, muscle mass, or nutritional status, or are non- or non-. According to the National Kidney Foundation, irrespective of diagnosis, the stage of the disease is based on the level of kidney function: Stage Description GFR(mL/min/1.73 m(2)) 1 Kidney damage with normal or decreased GFR 90 2 Kidney damage with mild decrease in GFR 60-89 3 Moderate decrease in GFR 30-59 4 Severe decrease in GFR 15-29 5 Kidney failure <15 (or dialysis) 56 Acute inflammation: >10.00 57 Because ethnic data is not always readily available, this report includes an eGFR for both -Americans and non- Americans. The National Kidney Disease Education Program (NKDEP) does not endorse the use of the MDRD equation for patients that are not between the ages of 18 and 70, are , have extremes of body size, muscle mass, or nutritional status, or are non- or non-. According to the National Kidney Foundation, irrespective of diagnosis, the stage of the disease is based on the level of kidney function: Stage Description GFR(mL/min/1.73 m(2)) 1 Kidney damage with normal or decreased GFR 90 2 Kidney damage with mild decrease in GFR 60-89 3 Moderate decrease in GFR 30-59 4 Severe decrease in GFR 15-29 5 Kidney failure <15 (or dialysis) 58 Acute inflammation: >10.00 59 Because ethnic data is not always readily available, this report includes an eGFR for both -Americans and non- Americans. The National Kidney Disease Education Program (NKDEP) does not endorse the use of the MDRD equation for patients that are not between the ages of 18 and 70, are , have extremes of body size, muscle mass, or nutritional status, or are non- or non-. According to the National Kidney Foundation, irrespective of diagnosis, the stage of the disease is based on the level of kidney function: Stage Description GFR(mL/min/1.73 m(2)) 1 Kidney damage with normal or decreased GFR 90 2 Kidney damage with mild decrease in GFR 60-89 3 Moderate decrease in GFR 30-59 4 Severe decrease in GFR 15-29 5 Kidney failure <15 (or dialysis) 60 Test Performed by: [place] [address] Silverlight Developer: Alberto Thorpe III, M.D. 61 -- REFERENCE VALUE -- <20.0 (Negative) Test Performed by: [place] [address] Silverlight Developer: Alberto Thorpe III, M.D. 62 The above ROSIE screen is designed for the detection of antibodies to extractable nuclear antigen (ROSIE) in human serum. It is a combination test for the detection of antibodies to REQUIREMENTS ENGINEER, Sm, SS-A (Ro), and SS-B (La) nuclear antigens. 63 Artie Kael 64 -- REFERENCE VALUE -- Not Applicable 65 RESULT: HLA-B27 antigen was not detected. Method: Flow Cytometry Test Performed by: [address] [address] Silverlight Developer: Alberto Thorpe III, M.D. Procedures Date Code Description Status 03/22/2018 10833 Inject/Drain Joint/Bursa Major W/O US Completed 01/26/2018 15902 Polysomnography Sleep Staging 4+ Parameters Completed 05/28/2017 77981 Holter Monitor Review (24 hr)dr review & interp only Completed 05/27/2017 85899 ECG Monitor/Recording W/Visual Superimposition Scanning Completed 05/27/2017 89470 ECG Monitor/Recording W/Visual Superimposition Scanning Completed 05/17/2017 65710 ECHO Transthoracic, Real-Time 2D With Doppler And Color Completed Flow 05/17/2017 00242 EKG Tracing & Interpretation Completed 11/13/2015 [id number] Mammogram Completed 02/19/2014 43543 ECHO Transthorasic Realtime 2D W Doppler & Color Flow Completed Hosp 10/28/2008 16274 ECHO Transthorasic Realtime 2D W Doppler & Color Flow Completed Hosp 10/28/2008 57357 Treadmill Interp/Report Only Completed 10/28/2008 89839 Stress Test Supervsn W/Out I/R Completed 10/27/2008 89835 EKG, Interpretation Only Completed Encounters Type Date Location Provider Dx Diagnosis Office Visit 09/01/2018 Rheumatology Iraj Glass, M06.09 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 SUBSYSTEMS ENGINEER-BC (pediatric) Z72.821 Inadequate sleep hygiene E66.01 Morbid (severe) obesity due to excess calories Z68.42 Body mass index (BMI) 45.0-49.9, adult Office Visit 07/29/2018 10:00a Orthopedic Dave Sanabria, M06.09 Rheumatoid Services Of [place] yousif w/o C.M.A. rheumatoid factor, multiple sites M75.111 Incomplete rotatr-cuff tear/ruptr of r shoulder, not trauma Office Visit 05/12/2018 2:30p Orthopedic Dave Sanabria, M06.09 Rheumatoid Services Of [facility] yousif w/o C.M.A. rheumatoid factor, multiple sites M75.41 Impingement syndrome of right shoulder Office Visit 05/09/2018 Rheumatology Nurse Visit M06.09 Rheumatoid 2:30p Services Of [facility] arthritis w/o rheumatoid factor, multiple sites Office Visit 04/13/2018 Pulmonology And Miryam G47.33 Obstructive sleep 2:00p Sleep [facility] Tyler, SCARLETT, [facility] G47.14 Hypersomnia due to medical condition Office Visit 04/04/2018 2:30p Rheumatology Zsofia M06.09 Rheumatoid Services Of [facility], [facility], multiple sites D50.9 Iron deficiency anemia, unspecified Z79.899 Other tray server (current) drug therapy Z23 Encounter for immunization Office Visit 02/15/2018 2:00p Orthopedic Dave Sanabria, M06.09 Rheumatoid Services Of [place] yousif w/o C.M.A. rheumatoid factor, multiple sites M75.41 Impingement syndrome of right shoulder Office Visit 01/27/2018 11:00a Rheumatology Zsofia M06.09 Rheumatoid Services Of [facility], [facility] arthritis w/o Ccmob rheumatoid factor, multiple sites M25.511 Pain in right shoulder D64.9 Anemia, unspecified M85.9 Disorder of bone density and structure, unspecified Z79.899 Other tray server (current) drug therapy Office Visit 12/20/2017 9:30a Rheumatology Zsofia M06.09 Rheumatoid Services Of [facility], [facility], multiple sites M25.511 Pain in right shoulder R21 Rash and other nonspecific skin eruption M85.9 Disorder of bone density and structure, unspecified Z79.899 Other tray server (current) drug therapy J30.9 Allergic rhinitis, unspecified Office Visit 11/29/2017 3:00p Pulmonology And Sleep Carly Zaragoza, R06.[address] [facility] G47.33 Obstructive sleep apnea (adult) (pediatric) E66.01 Morbid (severe) obesity due to excess calories Z68.42 Body mass index (BMI) 45.0-49.9, adult Office Visit 10/18/2017 10:00a Rheumatology Zsofia M06.09 Rheumatoid Services Of [facility], [facility] arthritis w/o Ccmob rheumatoid factor, multiple sites M85.9 Disorder of bone density and structure, unspecified Z79.899 Other senior living (current) drug therapy Office Visit 07/26/2017 11:30a Rheumatology Zsofia M06.09 Rheumatoid Services Of [facility] arthritis w/o Ccmob rheumatoid factor, multiple sites K08.89 Other specified disorders of teeth and supporting structures Z79.899 Other senior living (current) drug therapy M85.9 Disorder of bone density and structure, unspecified Office Visit 06/03/2017 11:00a Rheumatology Zsofia M06.09 Rheumatoid Services Of [facility] arthritis w/o Ccmob rheumatoid factor, multiple sites K08.89 Other specified disorders of teeth and supporting structures Z79.899 Other senior living (current) drug therapy S76.112S Strain of left quadriceps muscle, fascia and tendon, sequela Office 05/17/2017 Love Karma S. R94.31 Abnormal Visit 2:00p Cardiology Germaine Melgar electrocardiogram [ECG] [EKG] Z01.810 Encounter for preprocedural cardiovascular examination I10 Essential (primary) hypertension E66.01 Morbid (severe) obesity due to excess calories G47.33 Obstructive sleep apnea (adult) (pediatric) Office Visit 04/22/2017 11:30a Rheumatology Zsofia M06.09 Rheumatoid Services Of [facility] arthritis w/o Ccmob rheumatoid factor, multiple sites K08.89 Other specified disorders of teeth and supporting structures Z79.899 Other senior living (current) drug therapy Office Visit 03/22/2017 2:00p Rheumatology Eddiofia M06.09 Rheumatoid Services Of [facility], [facility] arthritis w/o Ccmob rheumatoid factor, multiple sites R79.82 Elevated C-reactive protein (CRP) R70.0 Elevated erythrocyte sedimentation rate Z79.899 Other tray server (current) drug therapy Z23 Encounter for immunization Office Visit 02/08/2017 3:30p Rheumatology Zsofia M06.09 Rheumatoid Services Of [facility] MARLON GlassP arthritis w/o Ccmob rheumatoid factor, multiple sites R79.82 Elevated C-reactive protein (CRP) R70.0 Elevated erythrocyte sedimentation rate Z79.899 Other tray server (current) drug therapy K08.89 Other specified disorders of teeth and supporting structures Office Visit 12/17/2016 11:30a Rheumatology Zsofia M06.09 Rheumatoid Services Of [facility] Quan, SUBSYSTEMS ENGINEER arthritis w/o Ccmob rheumatoid factor, multiple sites Z79.899 Other senior living (current) drug therapy K08.89 Other specified disorders of teeth and supporting structures M17.0 Bilateral primary osteoarthritis of knee M47.816 Spondylosis w/o myelopathy or radiculopathy, lumbar region Office Visit 10/20/2016 2:30p Rheumatology Zsofia K08.[address] 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 M.D. knee M25.562 Pain in left knee M25.462 Effusion, left knee M17.12 Unilateral primary osteoarthritis, left knee M21.062 Valgus deformity, not elsewhere classified, left knee Office Visit 09/24/2016 11:30a Rheumatology Zsofia M06.09 Rheumatoid Services Of [facility] MARLON GlassP arthritis w/o Ccmob rheumatoid factor, multiple sites R79.82 Elevated C-reactive protein (CRP) R70.0 Elevated erythrocyte sedimentation rate Z79.899 Other tray server (current) drug therapy M25.569 Pain in unspecified knee M25.562 Pain in left knee M25.561 Pain in right knee Z23 Encounter for immunization Office Visit 07/10/2016 4:00p Rheumatology Zsofia M06.[address] [facility] MARLON GlassP arthritis w/o rheumatoid factor, multiple sites R79.82 Elevated C-reactive protein (CRP) R70.0 Elevated erythrocyte sedimentation rate R21 Rash and other nonspecific skin eruption Z79.899 Other tray server (current) drug therapy Office Visit 2016 2:30p Rheumatology Shilo M06.09 Rheumatoid Services Of Yvonne Mayo M.D. arthritis w/o rheumatoid factor, multiple sites R70.0 Elevated erythrocyte sedimentation rate E79.0 Hyperuricemia w/o signs of inflam arthrit and tophaceous dis Z79.899 Other tray server (current) drug therapy Office Visit 04/15/2016 1:30p Rheumatology Iraj M06.[address] [facility] Quan [facility] arthritis w/o rheumatoid factor, multiple sites R70.0 Elevated erythrocyte sedimentation rate E79.0 Hyperuricemia w/o signs of inflam arthrit and tophaceous dis Z79.899 Other senior living (current) drug therapy Z23 Encounter for immunization M05.79 Rheu arthritis w rheu factor mult site w/o org/sys involv Office Visit 03/11/2016 1:30p Rheumatology Iraj M06.[address] [facility] Quan [facility] arthritis w/o rheumatoid factor, multiple sites R79.82 Elevated C-reactive protein (CRP) Z79.899 Other tray server (current) drug therapy Z23 Encounter for immunization Office Visit 11/22/2015 2:30p Rheumatology Iraj M06.[address] [facility] Quan [facility] arthritis w/o rheumatoid factor, multiple sites M79.641 Pain in right hand Z79.899 Other senior living (current) drug therapy Office Visit 07/17/2015 3:00p Rheumatology Iraj Glass M79.641 Pain in Services Of [facility] right hand M79.642 Pain in left hand R79.82 Elevated C-reactive protein (CRP) R70.0 Elevated erythrocyte sedimentation rate Z79.899 Other senior living (current) drug therapy Office Visit 03/11/2015 11:20a Rheumatology Gee Landry 71Ashely.49 Pain Joint Services Of Yvonne Herron Multiple Sites 338.4 Chronic Pain Syndrome V58.69 Medications Mcc (Current) Use Encounter Office Visit 05/02/2014 1:00p Steffi Landry 719.49 Pain Joint Services Of [facility] Multiple Sites V58.69 Medications Mcc (Current) Use Encounter 795.79 Immunological Findings Nonspec Other & Unspec V04.81 Need For Prophylactic Vaccination & Inoculation/Influenza Office Visit 02/27/2014 1:20p Rheumatology Gee Landry 719.49 Pain Joint Services Of [facility] Herron Multiple Sites 795.79 Immunological Findings Nonspec Other & Unspec 715.94 Osteoarthrosis Unspec Genlzd Or Localized Hand V58.69 Medications Mcc (Current) Use Encounter 786.50 Pain Chest Unspec 714.0 Rheumatoid Arthritis Office Visit 02/20/2014 10:54a Derrick Camilo 786.50 Pain Chest Assoc,thi Patel M.D. Unspec Hospitalists 447.8 Arteries And Arterioles Other Spec Disorders 564.1 Irritable Bowel Syndrome 401.9 Hypertension Unspec Office Visit 02/19/2014 4:07p Derrick Camilo 786.50 Pain Chest Assoc,thi Patel M.D. Unspec Hospitalists 447.8 Arteries And Arterioles Other Spec Disorders 564.1 Irritable Bowel Syndrome 401.9 Hypertension Unspec Office Visit 02/18/2014 10:53a Derrick Camilo 786.50 Pain Chest Assoc,thi Patel M.D. Unspec Hospitalists 447.8 Arteries And Arterioles Other Spec Disorders 564.1 Irritable Bowel Syndrome 401.9 Hypertension Unspec Office Visit 12/28/2013 2:40p Rheumatology Gee Landry 714.0 Rheumatoid Services Of Yvonne Herron Arthritis 715.94 Osteoarthrosis Unspec Genlzd Or Localized Hand V58.69 Medications Trauma Coordinator (Current) Use Encounter Office Visit 09/20/2013 1:40p Rheumatology Gee Landry 714.0 Rheumatoid Services Of Yvonne Herron Arthritis 715.94 Osteoarthrosis Unspec Genlzd Or Localized Hand V58.69 Medications Trauma Coordinator (Current) Use Encounter Office Visit 08/08/2013 Rheumatology Gee 715.94 Osteoarthrosis 10:40a Services Of Yvonne Landry M.D. 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 Office Visit 02/17/2011 ENT Services Of Remington Hidalgo, 477.0 Rhinitis Allergic 3:00p C.M.A. AT M.D. Due To Pollen [place] 784.0 Headache Office Visit 01/27/2011 1:45p ENT Services Of Remington Hidalgo, 784.0 Headache C.M.A. AT [facility] 477.9 Rhinitis Allergic Cause Unspec 350.2 Face Pain Atypical Office Visit 12/09/2010 3:15p ENT Services Of Remington Hidalgo, 784.0 Headache C.M.A. AT [facility].D 477.9 Rhinitis Allergic Cause Unspec Office Visit 10/29/2008 1:15a [facility] 786.50 Pain Chest Assoc,thi Brown M.D. Unspec Hospitalists Office Visit 10/28/2008 1:45a [facility] 786.50 Pain Chest Assoc,thi Brown M.D. Unspec Hospitalists Office Visit 10/27/2008 12:45a [facility] Tonya Paganello, 786.50 Pain Chest Assocthi M.D. Unspec Hospitalists Plan of Treatment Future Appointment(s):11/29/2018 3:00 pm - ISADORA Rosario at [facility] 11:30 am - Miryam Tyler DNP, RN, SUBSYSTEMS ENGINEER-BC at Pulmonology And Sleep Services [facility]
[2018-11-04] MEDS: Albuterol/Ipratropium NEB.SOL* Albuterol 2.5 MG/Ipratropium 0.5 MG 3 ML INH SCH ×3 (15:02→15:56)
[2018-11-04 15:27] LABS: ABS Basophils 0.1 10^3/ul (0-0.2); ABS Eosinophils 0.3 10^3/ul (0-0.6); ABS Lymphocytes 2.5 10^3/ul (1.0-4.8); ABS Monocytes 0.7 10^3/ul (0-0.8); ABS Neutrophils 3.6 10^3/ul (1.5-7.7); Eosinophil % 3.9 %; Hematocrit 36 % (35-47); Hemoglobin 12.2 g/dL (12.0-16.0); Lymphocyte % 34.5 %; Mean Corpuscular HGB Conc 34 g/dL (31-36); Mean Corpuscular Hemoglobin 30 pg (27-31); Mean Corpuscular Volume 91 fL (80-97); Mean Platelet Volume 8.2 fL (7.4-10.4); Platelet Count 252 10^3/uL (150-450); Red Blood Count 3.99 10^6 /uL (3.70-4.87); Red Cell Distribution Width 14 % (10.5-15); White Blood Count 7.2 10^3/uL (3.5-10.8)
[2018-11-04 15:50] LABS: Albumin 3.8 g/dL (3.2-5.2); BUN/Creatinine Ratio 29.2 (8-20); C Reactive Protein 4.69 mg/L (<8.01); Calcium 9.1 mg/dL (8.6-10.3); EGFR African American 58.7 (>60); EGFR Non-African American 48.5 (>60); Globulin 3.7 g/dL (2-4); Potassium 3.3 mmol/L (3.5-5.0); Total Bilirubin 0.4 mg/dL (0.2-1.0); Total Protein 7.5 g/dL (6.4-8.9)
[2018-11-04 15:51] LABS: Troponin I 0.01 ng/mL (<0.04)
[2018-11-04] MEDS ORDERED: Potassium Chlor TAB* 20 MEQ TAB.ER PO ONE (18:05)
[2018-11-04 19:08] VITALS: BP 153/88
== END 2018-11-04 19:16 | disposition home or self-care (01) ==
LOC: ED 14:18
DX: J45.901 Unspecified asthma with (acute) exacerbation (principal); I10 Essential (primary) hypertension; Z87.891 Personal history of nicotine dependence
CPT/HCPCS: 36415; 71046; 80053; 82803; 83605; 83880; 84484; 85025; 86140; 87040; 93005; 96374; 99284; A9270-GY; J2930

== ENCOUNTER 2021-02-11 19:27 | Inpatient (IN) ==
[2021-02-11 21:18] LABS: ABS Basophils 0.1 10^3/ul (0-0.2); ABS Eosinophils 0.3 10^3/ul (0-0.6); ABS Lymphocytes 1.9 10^3/ul (1.0-4.8); ABS Monocytes 0.6 10^3/ul (0-0.8); ABS Neutrophils 3.7 10^3/ul (1.5-7.7); Hematocrit 35 % (35-47); Hemoglobin 11.7 g/dL (12.0-16.0); Lymphocyte % 28.6 %; Mean Corpuscular HGB Conc 34 g/dL (31-36); Mean Corpuscular Hemoglobin 32 pg (27-31); Mean Corpuscular Volume 95 fL (80-97); Mean Platelet Volume 8.1 fL (7.4-10.4); Platelet Count 261 10^3/uL (150-450); Red Blood Count 3.69 10^6 /uL (3.70-4.87); Red Cell Distribution Width 15 % (10-15); White Blood Count 6.5 10^3/uL (3.5-10.8)
[2021-02-11 21:37] LABS: Alcohol, S < 13 mg/dL (<10)
[2021-02-11 21:38] LABS: ALT 20 U/L (7-52); AST 23 U/L (13-39); Albumin 3.8 g/dL (3.2-5.2); Albumin/Globulin Ratio 1.1 (1-3); Alkaline Phosphatase 98 U/L (35-149); Anion Gap 8 mmol/L (2-11); Blood Urea Nitrogen 15 mg/dL (6-24); CO2 Carbon Dioxide 28 mmol/L (22-32); Calcium 8.2 mg/dL (8.6-10.3); Chloride 102 mmol/L (101-111); EGFR African American 52.4 (>60); EGFR Non-African American 43.3 (>60); Globulin 3.6 g/dL (2-4); Glucose 94 mg/dL (70-100); Magnesium 1.7 mg/dL (1.9-2.7); Potassium 3.3 mmol/L (3.5-5.0); Sodium 138 mmol/L (135-145); Total Protein 7.4 g/dL (6.4-8.9); Troponin I 0.01 ng/mL (<0.03)
[2021-02-11 21:50] LABS: TSH Ultra Thyroid Stim Horm 2.06 mcIU/mL (0.34-5.60)
[2021-02-11 23:28] LABS: Urine Appearance Clear; Urine Bilirubin Negative (Negative); Urine Blood Negative (Negative); Urine Color Straw; Urine Glucose Negative (Negative); Urine Ketones Negative (Negative); Urine Nitrite Negative (Negative); Urine Protein Negative (Negative); Urine Specific Gravity 1.004 (1.002-1.030); Urine Urobilinogen Negative (Negative)
[2021-02-11 23:48] LABS: Urine Bacteria Absent (Absent); Urine Red Blood Cell Trace(0-2/hpf) (Absent); Urine White Blood Cell 3+(>20/hpf) (Absent)
[2021-02-12] MEDS ORDERED: Polyethylene Glycol 3350 17 GM PACKET PO PRN (00:23)
[2021-02-12] MEDS ORDERED: Magnesium Sulfate IV 3 GM in NS 0.9% 100 ml BAG 100 ML IVPB ONE (00:31)
[2021-02-12] MEDS ORDERED: Potassium Chlor 20 meq TAB.ER PO ONE ×2 (00:34→08:13)
[2021-02-12] MEDS ORDERED: Lactated Ringers 1000 ml BAG 1,000 ML IV SCH (01:00)
[2021-02-12 01:10] LABS: Cholesterol 107 mg/dL; HDL Cholesterol 45.4 mg/dL; LDL Cholesterol 31 mg/dL; Triglycerides 152 mg/dL
[2021-02-12 04:00] LABS: Hematocrit 34 % (35-47); Hemoglobin 11.4 g/dL (12.0-16.0); Mean Corpuscular HGB Conc 33 g/dL (31-36); Mean Corpuscular Hemoglobin 32 pg (27-31); Mean Corpuscular Volume 95 fL (80-97); Mean Platelet Volume 7.7 fL (7.4-10.4); Platelet Count 248 10^3/uL (150-450); Red Blood Count 3.62 10^6 /uL (3.70-4.87); Red Cell Distribution Width 15 % (10-15); White Blood Count 7.6 10^3/uL (3.5-10.8)
[2021-02-12 04:15] LABS: Calcium 8.3 mg/dL (8.6-10.3); EGFR African American 54.4 (>60); EGFR Non-African American 44.9 (>60); Magnesium 2.6 mg/dL (1.9-2.7); Potassium 3.4 mmol/L (3.5-5.0)
[2021-02-12 07:08] LABS: Troponin I 0.01 ng/mL (<0.03)
[2021-02-12] MEDS: Cholecalciferol (VIT D3) 1,000 unit TAB PO SCH (08:17)
[2021-02-12] MEDS: Multivitamins/Minerals TAB PO SCH (08:17)
[2021-02-12] MEDS ORDERED: Perflutren Lipid Microsphere 3 ML VIAL ONE (10:37)
[2021-02-13 07:02] LABS: ABS Basophils 0.1 10^3/ul (0-0.2); ABS Eosinophils 0.2 10^3/ul (0-0.6); ABS Lymphocytes 2.4 10^3/ul (1.0-4.8); ABS Monocytes 0.7 10^3/ul (0-0.8); ABS Neutrophils 3.6 10^3/ul (1.5-7.7); Eosinophil % 3.4 %; Hematocrit 33 % (35-47); Hemoglobin 11.2 g/dL (12.0-16.0); Lymphocyte % 34.5 %; Mean Corpuscular HGB Conc 34 g/dL (31-36); Mean Corpuscular Hemoglobin 32 pg (27-31); Mean Corpuscular Volume 94 fL (80-97); Mean Platelet Volume 8.3 fL (7.4-10.4); Platelet Count 239 10^3/uL (150-450); Red Blood Count 3.47 10^6 /uL (3.70-4.87); Red Cell Distribution Width 15 % (10-15)
[2021-02-13 07:13] LABS: Calcium 8.2 mg/dL (8.6-10.3); EGFR African American 57.7 (>60); EGFR Non-African American 47.7 (>60); Magnesium 1.9 mg/dL (1.9-2.7); Phosphorus 2.8 mg/dL (2.5-5.0); Potassium 3.9 mmol/L (3.5-5.0)
[2021-02-13] MEDS: Cholecalciferol (VIT D3) 1,000 unit TAB PO SCH (08:37)
[2021-02-13] MEDS: Multivitamins/Minerals TAB PO SCH (08:37)
[2021-02-14] MEDS: Cholecalciferol (VIT D3) 1,000 unit TAB PO SCH (08:28)
[2021-02-14] MEDS: Multivitamins/Minerals TAB PO SCH (08:28)
[2021-02-15] MEDS: Cholecalciferol (VIT D3) 1,000 unit TAB PO SCH (08:48)
[2021-02-15] MEDS: Multivitamins/Minerals TAB PO SCH (08:48)
[2021-02-16] MEDS: Cholecalciferol (VIT D3) 1,000 unit TAB PO SCH (08:41)
[2021-02-16] MEDS: Multivitamins/Minerals TAB PO SCH (08:41)
[2021-02-17] MEDS: Cholecalciferol (VIT D3) 1,000 unit TAB PO SCH (07:09)
[2021-02-17] MEDS: Multivitamins/Minerals TAB PO SCH (07:09)
[2021-02-18 07:25] VITALS: BP 144/82
[2021-02-18] MEDS: Multivitamins/Minerals TAB PO SCH (09:25)
[2021-02-18] MEDS: Cholecalciferol (VIT D3) 1,000 unit TAB PO SCH (09:26)
== END 2021-02-18 12:55 | DRG 312 ==
LOC: ED 19:27 → MEDTELE 02-12 00:13 → INTOOBSV 02-12 00:13 → SUATTDRO 02-12 00:13 → MEDTELE 02-12 01:54 → SUATTDRO 02-14 14:00
PROVIDERS: ADMIT Internal Medicine; ATTEND Internal Medicine

== ENCOUNTER 2021-12-31 16:47 | Observation (INO) ==
[2021-12-31] MEDS ORDERED: Lactated Ringers 1000 ml BAG 1,000 ML IV ONE (17:49)
[2021-12-31 18:04] LABS: ABS Basophils 0.1 10^3/ul (0-0.2); ABS Eosinophils 0.3 10^3/ul (0-0.6); ABS Lymphocytes 2.3 10^3/ul (1.0-4.8); ABS Monocytes 0.8 10^3/ul (0-0.8); Eosinophil % 3.4 %; Hematocrit 34 % (35-47); Lymphocyte % 30.6 %; Mean Corpuscular HGB Conc 32 g/dL (31-36); Mean Corpuscular Hemoglobin 29 pg (27-31); Mean Corpuscular Volume 90 fL (80-97); Mean Platelet Volume 7.6 fL (7.4-10.4); Platelet Count 265 10^3/uL (150-450); Red Blood Count 3.79 10^6 /uL (3.70-4.87); Red Cell Distribution Width 15 % (10-15); White Blood Count 7.4 10^3/uL (3.5-10.8)
[2021-12-31 18:32] LABS: INR 1.07 (0.86-1.15)
[2021-12-31 18:48] LABS: Albumin 3.6 g/dL (3.2-5.2); Albumin/Globulin Ratio 1.1 (1-3); Calcium 8.4 mg/dL (8.6-10.3); Globulin 3.4 g/dL (2-4); Potassium 3.5 mmol/L (3.5-5.0); Total Bilirubin 0.4 mg/dL (0.2-1.0); eGFR CKD-EPI 55.7 (>60)
[2021-12-31 20:20] LABS: High Sensitivity Troponin 1 Hr 5 pg/mL (<15)
[2021-12-31] MEDS ORDERED: Albuterol HFA INHALER 8 gm MDI INH PRN (22:41)
[2021-12-31] MEDS ORDERED: Albuterol 2.5mg/3 ml (0.083%) NEB.SOLN INH PRN (22:54)
[2021-12-31 23:20] LABS: Magnesium 1.7 mg/dL (1.9-2.7)
[2021-12-31] MEDS: Enoxaparin 40 MG/0.4 ML SYR SUBCUT SCH (23:22)
[2021-12-31 23:35] LABS: TSH Ultra Thyroid Stim Horm 1.72 mcIU/mL (0.34-5.60)
[2021-12-31 23:37] LABS: Free T4 0.82 ng/dL (0.61-1.12)
[2022-01-01] MEDS ORDERED: Magnesium Sulfate IV 3 GM in NS 0.9% 100 ml BAG 100 ML IVPB ONE (00:34)
[2022-01-01] MEDS ORDERED: Potassium Chlor 20 meq TAB.ER PO ONE (00:36)
[2022-01-01] MEDS ORDERED: Cyanocobalamin INJ 1,000 MCG/ML VIAL 1 ML VIAL IM ONE (00:44)
[2022-01-01] MEDS ORDERED: Magnesium Sulfate 2 GM IV (Premix) IVPB ONE (01:00)
[2022-01-01] MEDS ORDERED: Magnesium Sulfate 1 GM IV 1 GM/100 ML BAG IV ONE (02:00)
[2022-01-01 06:35] LABS: Calcium 8.4 mg/dL (8.6-10.3); Magnesium 2.5 mg/dL (1.9-2.7); Potassium 3.3 mmol/L (3.5-5.0); eGFR CKD-EPI 53.9 (>60)
[2022-01-01 06:48] LABS: Urine Appearance Clear; Urine Color Yellow
[2022-01-01 06:55] LABS: Urine Bilirubin Negative (Negative); Urine Blood Negative (Negative); Urine Glucose Negative (Negative); Urine Ketones Negative (Negative); Urine Nitrite Negative (Negative); Urine Protein Negative (Negative); Urine Urobilinogen 0.2 (Negative) (Negative)
[2022-01-01] MEDS: Fluticasone NASAL SPRAY 50MCG 16 gm SPRAY BTL INTRANASAL SCH ×2 (08:28→22:10)
[2022-01-01] MEDS: Cholecalciferol (VIT D3) 1,000 unit TAB PO SCH (08:28)
[2022-01-01 09:17] LABS: C Reactive Protein 6.29 mg/L (<8.01)
[2022-01-01] MEDS: Enoxaparin 40 MG/0.4 ML SYR SUBCUT SCH (22:10)
[2022-01-02 06:56] LABS: Calcium 8.7 mg/dL (8.6-10.3); Magnesium 1.9 mg/dL (1.9-2.7); Potassium 3.6 mmol/L (3.5-5.0); eGFR CKD-EPI 63.3 (>60)
[2022-01-02] MEDS ORDERED: Magnesium Sulfate 2 gm BAG 2 GM/50 ML BAG IVPB ONE (07:02)
[2022-01-02] MEDS: Fluticasone NASAL SPRAY 50MCG 16 gm SPRAY BTL INTRANASAL SCH (07:45)
[2022-01-02] MEDS: Cholecalciferol (VIT D3) 1,000 unit TAB PO SCH (07:45)
[2022-01-02] MEDS ORDERED: Potassium Chloride LIQUID 20 MEQ/15 ML LIQUID PO ONE (08:00)
[2022-01-02 11:22] VITALS: BP 117/51
== END 2022-01-02 14:45 ==
LOC: EDHOLD 16:47 → ED 16:47 → SUATTDRO 22:36 → MED 01-01 00:04
PROVIDERS: ADMIT Internal Medicine; ATTEND Internal Medicine

== ENCOUNTER 2023-10-01 11:01 | Observation (INO) ==
[2023-10-01] MEDS ORDERED: Rocuronium 50 mg VIAL 10 mg/ml 5 ml VIAL (50 mg) ONE (11:07)
[2023-10-01] MEDS ORDERED: Succinylcholine 200 mg VIAL 20 mg/ml 10 ml VIAL (200 mg) ONE (11:07)
[2023-10-01] MEDS ORDERED: EPINEPHrine Anaphylaxis SYR CERTADOSE SYR KIT ONE (11:09)
[2023-10-01 11:34] LABS: ABS Basophils 0.1 10^3/uL (0.0-0.1); ABS Eosinophils 0.4 10^3/uL (0.0-0.5); ABS Lymphocytes 4.2 10^3/uL (1.0-4.8); ABS Monocytes 1.3 10^3/uL (0.0-0.9); ABS Neutrophils 5.7 10^3/uL (1.5-7.6); Eosinophil % 3.4 %; Hemoglobin 11.8 g/dL (11.5-14.3); Mean Corpuscular Hemoglobin 27.6 pg (27-33); Mean Corpuscular Volume 86.1 fL (80-97); Mean Platelet Volume 8.7 fL (7.5-11.2); Platelet Count 324 10^3/uL (150-450); Red Blood Count 4.29 10^6/uL (3.63-4.92); Red Cell Distribution Width 15.6 % (12-17); White Blood Count 11.8 10^3/uL (3.8-11.8)
[2023-10-01 12:10] LABS: Albumin 4.3 g/dL (3.2-5.2); Calcium 9.1 mg/dL (8.6-10.3); Creatinine, Serum 1.04 mg/dL (0.51-0.95); Globulin 4.1 g/dL (2-4); Magnesium 1.6 mg/dL (1.9-2.7); Total Bilirubin 0.4 mg/dL (0.2-1.0); Total Protein 8.4 g/dL (6.4-8.9); eGFR CKD-EPI 58.2 (>60)
[2023-10-01 12:12] LABS: INR 1.04 (0.83-1.13)
[2023-10-01] MEDS: Iodixanol (CONTRAST) 320 MG/ML 100 ML SDV IV ONE ×2 (12:47→12:52)
[2023-10-01] MEDS ORDERED: Albuterol HFA INHALER 8 gm MDI INH PRN (18:21)
[2023-10-01] MEDS: Magnesium Sulf 4 GM/100 ML IV 4,000 MG/100 ML BAG IVPB ONE (19:28)
[2023-10-01] MEDS: Enoxaparin 40 MG/0.4 ML SYR SUBCUT SCH (22:50)
[2023-10-01 22:56] LABS: High Sensitivity Troponin 1 Hr 126 pg/mL (<15)
[2023-10-02 07:31] LABS: Blood Urea Nitrogen 19 mg/dL (6-24); C Reactive Protein 8.31 mg/L (<8.01); CO2 Carbon Dioxide 21 mmol/L (22-32); Calcium 8.7 mg/dL (8.6-10.3); Chloride 104 mmol/L (101-111); Creatinine, Serum 1.04 mg/dL (0.51-0.95); Glucose 138 mg/dL (70-100); Magnesium 2.4 mg/dL (1.9-2.7); Sodium 137 mmol/L (135-145); eGFR CKD-EPI 58.2 (>60)
[2023-10-02 07:49] LABS: Anion Gap 12 mmol/L (2-16)
[2023-10-02] MEDS ORDERED: Fluoxetine 40 mg CAP (NF) PO SCH (09:00)
[2023-10-02 09:22] LABS: ABS Lymphocytes 1.1 10^3/uL (1.0-4.8); ABS Monocytes 0.3 10^3/uL (0.0-0.9); ABS Neutrophils 12.1 10^3/uL (1.5-7.6); Hematocrit 33.7 % (35-45); Lymphocyte % 7.8 %; Mean Corpuscular Hemoglobin 28.1 pg (27-33); Mean Corpuscular Hgb Conc 32.7 g/dL (31-36); Mean Platelet Volume 8.6 fL (7.5-11.2); Platelet Count 295 10^3/uL (150-450); Red Blood Count 3.92 10^6/uL (3.63-4.92); Red Cell Distribution Width 15.5 % (12-17); White Blood Count 13.6 10^3/uL (3.8-11.8)
[2023-10-02] MEDS: Lidocaine PATCH 4% TOPICAL SCH (09:41)
[2023-10-02] MEDS: Fluticasone NASAL SPRAY 50MCG 16 gm SPRAY BTL INTRANASAL SCH (09:41)
[2023-10-03 13:01] VITALS: BP 127/61
== END 2023-10-03 16:00 ==
LOC: ED 11:01 → EDHOLD 11:01 → MED 20:12
PROVIDERS: ADMIT Hospitalist; ATTEND Internal Medicine